=== PATIENT | female | born 1980 | race Caucasian/White ===

== ENCOUNTER 2020-01-29 10:58 | Emergency (ER) | payer OTHER ==
[2020-01-29] MEDS ORDERED: Sodium Chloride 0.9% 1000 ML 1,000 ML IV STA (11:12)
[2020-01-29] MEDS ORDERED: Sodium Chloride 0.9% 1000 ML 1,000 ML ONE (11:15)
[2020-01-29 11:49] LABS: BASOPHIL % 0.2 % (0.0-0.4); Basophil (Absolute #) 0.03 (0-0.4); Eosinophil (Absolute #) 0.17 (0-0.5); Hematocrit 41.4 % (35-47); Hemoglobin 13.1 gm/dl (12.0-16.0); Lymphocytes % 20.8 % (24.0-44.0); Mean Corpuscular Hgb Concent. 31.6 g/dl (32-36); Mean Platelet Volume 10.9 fl (7.5-11.0); Monocyte (Absolute #) 1.05 (0.0-1.3); Monocytes % 5.9 % (0.0-12.0); Neutrophil % 72.1 % (36.0-66.0); Platelet Count 452 K/mm3 (150-450); Red Blood Count 4.36 M/mm3 (4.1-5.4); Red Cell Distribution Width 15.3 % (11.5-14.0); White Blood Count 17.8 K/mm3 (4.0-10.5)
[2020-01-29] MEDS ORDERED: MORPHINE SULFATE 4 MG INJ IV ONE (11:55)
[2020-01-29] MEDS ORDERED: Zofran 4 MG/2 ML VIAL IV ONE (11:55)
[2020-01-29] MEDS ORDERED: TORAdol 30 mg Injection ONE (11:55)
[2020-01-29 12:19] VITALS: BP 167/93
[2020-01-29 12:26] LABS: ALKALINE PHOSPHATASE 131 U/L (38-126); ANION GAP 11.3 MEQ/L (5-15); BLOOD UREA NITROGEN 13 mg/dL (7-17); CHLORIDE 108 mmol/L (98-107); Calcium 9.2 mg/dL (8.4-10.2); Carbon Dioxide 24 mmol/L (22-30); Creatinine 1 0.93 mg/dL (0.52-1.04); EST GLOMERULAR FILTRATION RATE > 60.0 ML/MIN; Glucose 119 mg/dL (74-106); LIPASE 50 U/L (23-300); Potassium 4.4 mmol/L (3.5-5.1); SGOT/AST 24 U/L (14-36); SGPT/ALT 31 U/L (0-35); SODIUM 138 mmol/L (137-145); Total Protein 7.3 g/dL (6.3-8.2)
[2020-01-29 12:29] LABS: Appearance SLIGHTLY CLOUDY (CLEAR); Bacteria MODERATE /HPF (NEGATIVE); Bilirubin NEGATIVE (NEGATIVE); Blood NEGATIVE Ery/ul (0-5); Epithelial Cells RARE /HPF (FEW); Glucose NEGATIVE (NEGATIVE); Ketones NEGATIVE (NEGATIVE); Leukocyte Esterase SMALL (NEGATIVE); Mucus SLIGHT /HPF (NEGATIVE); Nitrite NEGATIVE (NEGATIVE); Protein,Urine Dip NEGATIVE (Negative); RBC 0-2 /HPF (0-2); Specific Gravity 1.006 (1.005-1.025); Urobilinogen NEGATIVE mg/dL (0-1)
[2020-01-29] MEDS ORDERED: TORAdol 30 mg Injection IV ONE (12:54)
--- NOTE | 2020-01-29 13:18 | XRAY ---
Indication: Left lower quadrant pain. Multiple contiguous axial images obtained through the abdomen and pelvis using 80 cc Isovue 370 contrast only. Comparison: None Lung bases demonstrates posterior right lower lobe cluster of noncalcified nodules, largest 9 mm considered indeterminate at this time. No infiltrate or effusion. Heart is not enlarged. Noncontrasted stomach and bowel loops appear nonobstructed. Normal appendix. No free fluid/air. Fundus of uterus demonstrates a 2 cm ovoid hypodense lesion, possible fibroid. Mild fatty hepatomegaly measuring 23 cm. Remaining liver, gallbladder, pancreas, spleen, adrenal glands, kidneys, ureters, bladder, uterus, and aorta appear unremarkable. No pathologic retroperitoneal lymphadenopathy. Osseous structures intact. No ventral or inguinal hernias. Impression: 1. Right lower lobe cluster of indeterminant noncalcified micronodules. Outside comparison studies recommended if available. If not, CT chest recommended to establish baseline with follow-up per Fleischner guidelines. 2. 2 cm uterine hypodense lesion, possible fibroid. Pelvic sonogram may yield further information if clinically warranted. 3. Fatty hepatomegaly.
[2020-01-29 14:08] VITALS: PULSE 95; O2SAT 97
--- NOTE | 2020-01-29 14:17 | XRAY ---
Indication: Left lower quadrant pain. Two-dimensional transvaginal pelvic sonogram performed. Comparison: September 03, 2014. Sonogram limited due to patient body habitus. Fundus poorly visualized. Uterus remains anteverted measuring 7.6 x 3.8 cm in the longitudinal plane. Lower uterine segment again demonstrates a few tiny nabothian cysts, largest 3 mm. Right ovary measures 1.8 x 2.0 x 2.3 cm and the left measures 2.8 x 2.8 x 1.7 cm. Normal follicular cysts and perfusion bilaterally. No suspicious adnexal mass or free fluid. Impression: Negative limited transvaginal pelvic sonogram. CT fundal fibroid not seen.
--- NOTE | 2020-01-29 14:51 | ERPHSYRPT ---
- History of Present Illness Time Seen by Provider: 01/29/20 11:18 Historian: patient Exam Limitations: no limitations Patient Subjective Stated Complaint: Pain in LLQ Triage Nursing Assessment: Pt drove self to the ER, hypertensive, pain with palp atation to the LLQ, states that it feels like a "spasm of my ovary", pulses normal, rates pain at this time as 5/10, skin flushed/w/d, 2 small BM's this AM, denies N&V Physician History: 39 years old morbidly obese female presented in the ER with chief complaint of left lower quadrant pain intermittently since yesterday without any significant aggravating or relieving factors, moderate intensity, not associated with vomiting or diarrhea. Denies any vaginal bleeding or discharge. No fever or chills reported. Timing/Duration: yesterday, intermittent, gradual onset, worse Activities at Onset: rest Quality: sharpness Abdominal Pain Onset Location: LLQ Pain Radiation: no radiation Severity of Pain-Max: moderate Severity of Pain-Current: moderate Modifying Factors: Improves With: nothing Associated Symptoms: denies symptoms Previous symptoms: no prior history Allergies/Adverse Reactions: prochlorperazine [From Compazine] Adverse Reaction (Verified 01/29/20 11:11) muscle spasms Home Medications: Levonorgestrel-Ethin Estradiol [Orsythia-28 Tablet] 1 each PO HS 11/08/15 [History] Hx Tetanus, Diphtheria Vaccination/Date Given: Yes (up to date) Hx Influenza Vaccination/Date Given: No Hx Pneumococcal Vaccination/Date Given: No Travel Risk - International Travel Have you traveled outside of the country in past 3 weeks: No - Coronavirus Screening Are you exhibiting any of the following symptoms?: No Close contact with a COVID-19 positive Pt in past 14-21 Days: No - Review of Systems Constitutional: No Symptoms Eyes: No Symptoms Ears, Nose, & Throat: No Symptoms Respiratory: No Symptoms Cardiac: No Symptoms Abdominal/Gastrointestinal: Abdominal Pain Genitourinary Symptoms: No Symptoms Musculoskeletal: No Symptoms Skin: No Symptoms Neurological: No Symptoms Psychological: No Symptoms Endocrine: No Symptoms Hematologic/Lymphatic: No Symptoms Immunological/Allergic: No Symptoms - Past Medical History Pertinent Past Medical History: Yes Neurological History: Migraines ENT History: No Pertinent History Cardiac History: No Pertinent History Respiratory History: No Pertinent History Endocrine Medical History: No Pertinent History Musculoskeletal History: Other GI Medical History: No Pertinent History History: No Pertinent History Psycho-Social History: No Pertinent History Female Reproductive Disorders: No Pertinent History Other Medical History: rarely has a migraine maybe once a year. Had a broken arm as a child - Past Surgical History Past Surgical History: Yes Neuro Surgical History: No Pertinent History Cardiac: No Pertinent History Respiratory: No Pertinent History Gastrointestinal: Hernia Repair Genitourinary: No Pertinent History Musculoskeletal: No Pertinent History Female Surgical History: No Pertinent History Other Surgical History: had hernia repair as a child and had a broken arm as a child had a sling no surgery to broken left upper arm - Social History Smoking Status: Former smoker Exposure to second hand smoke: No Drug Use: none Patient Lives Alone: Yes - Female History Hx Last Menstrual Period: 01/16/2020 Hx Now: No - Nursing Vital Signs Nursing Vital Signs: Initial Vital Signs Temperature 98.0 F 01/29/20 10:59 Pulse Rate 101 H 01/29/20 10:59 Blood Pressure 185/106 01/29/20 10:59 O2 Sat by Pulse Oximetry 99 01/29/20 10:59 Pain Scale Pain Intensity 4 - Physical Exam General Appearance: no apparent distress Eye Exam: PERRL/EOMI Ears, Nose, Throat Exam: normal ENT inspection, TMs normal Neck Exam: normal inspection, non-tender, supple, full range of motion Respiratory Exam: normal breath sounds, lungs clear Cardiovascular Exam: regular rate/rhythm, normal heart sounds Gastrointestinal/Abdomen Exam: soft, normal bowel sounds, tenderness (Left lower quadrant) Pelvic Exam: not done Back Exam: normal inspection, normal range of motion Extremity Exam: normal inspection, normal range of motion Neurologic Exam: alert, oriented x 3, cooperative Skin Exam: normal color SpO2 Interpretation: normal SpO2: 97 O2 Delivery: Room Air Ordered Tests: Active Orders 24 hr Category Date Time Status IV Insertion STAT Care 01/29/20 11:17 Completed ABDOMEN AND PELVIS W CONTRAST [CT] Stat Exams 01/29/20 11:17 Completed PELVIS TRANS VAGINAL [US] Stat Exams 01/29/20 13:21 Completed CBC W DIFF Stat Lab 01/29/20 11:25 Completed CMP Stat Lab 01/29/20 11:25 Completed CULTURE,URINE Stat Lab 01/29/20 12:12 Received HCG,QUALITATIVE URINE Stat Lab 01/29/20 12:12 Completed LIPASE Stat Lab 01/29/20 11:25 Completed UA W/RFX UR CULTURE Stat Lab 01/29/20 12:12 Completed Medication Summary Discontinued Medications Generic Name Dose Route Start Last Admin Trade Name Ru PRN Reason Stop Dose Admin Sodium Chloride 1,000 mls @ 999 mls/hr 01/29/20 11:12 01/29/20 12:50 Sodium Chloride 0.9% 1000 Ml IV 01/29/20 12:12 Infused .Q1H1M STA Infusion Sodium Chloride Confirm 01/29/20 11:15 Sodium Chloride 0.9% 1000 Ml Administered 01/29/20 11:16 Dose 1,000 mls @ ud .ROUTE .STK-MED ONE Ketorolac Tromethamine Confirm 01/29/20 11:55 Toradol 30 Mg Injection Administered 01/29/20 11:56 Dose 30 mg .ROUTE .STK-MED ONE Ketorolac Tromethamine 30 mg 01/29/20 12:54 01/29/20 12:55 Toradol 30 Mg Injection IV 01/29/20 12:55 30 mg STAT ONE Administration Morphine Sulfate 4 mg 01/29/20 11:55 01/29/20 12:55 Morphine Sulfate 4 Mg Inj IV 01/29/20 11:56 Not Given STAT ONE Ondansetron HCl 4 mg 01/29/20 11:55 01/29/20 14:42 Zofran 4 Mg/2 Ml Vial IV 01/29/20 11:56 Not Given STAT ONE Lab/Rad Data: Laboratory Result Diagrams 01/29/20 11:25 01/29/20 11:25 Laboratory Results 01/29/20 01/29/20 01/29/20 Range/Units 12:12 12:12 11:25 WBC (4.0-10.5) K/mm3 RBC (4.1-5.4) M/mm3 Hgb (12.0-16.0) gm/dl Hct (35-47) % MCV (78-100) fl MCH (26-32) pg MCHC (32-36) g/dl RDW (11.5-14.0) % Plt Count (150-450) K/mm3 MPV (7.5-11.0) fl Gran % (36.0-66.0) % Eos # (Auto) (0-0.5) Absolute Lymphs (auto) (1.0-4.6) Absolute Monos (auto) (0.0-1.3) Lymphocytes % (24.0-44.0) % Monocytes % (0.0-12.0) % Eosinophils % (0.00-5.0) % Basophils % (0.0-0.4) % Absolute Granulocytes (1.4-6.9) Basophils # (0-0.4) Sodium 138 (137-145) mmol/L Potassium 4.4 (3.5-5.1) mmol/L Chloride 108 H (98-107) mmol/L Carbon Dioxide 24 (22-30) mmol/L Anion Gap 11.3 (5-15) MEQ/L BUN 13 (7-17) mg/dL Creatinine 0.93 (0.52-1.04) mg/dL Estimated GFR > 60.0 ML/MIN Glucose 119 H (74-106) mg/dL Calcium 9.2 (8.4-10.2) mg/dL Total Bilirubin 0.30 (0.2-1.3) mg/dL AST 24 (14-36) U/L ALT 31 (0-35) U/L Alkaline Phosphatase 131 H (38-126) U/L Serum Total Protein 7.3 (6.3-8.2) g/dL Albumin 4.0 (3.5-5.0) g/dL Lipase 50 (23-300) U/L Urine Color YELLOW (YELLOW) Urine Appearance SLIGHTLY CLOUDY (CLEAR) Urine pH 5.0 (5-6) Ur Specific [place] 1.006 (1.005-1.025) Urine Protein NEGATIVE (Negative) Urine Ketones NEGATIVE (NEGATIVE) Urine Blood NEGATIVE (0-5) Terell/ul Urine Nitrite NEGATIVE (NEGATIVE) Urine Bilirubin NEGATIVE (NEGATIVE) Urine Urobilinogen NEGATIVE (0-1) mg/dL Ur Leukocyte Esterase SMALL (NEGATIVE) Urine WBC (Auto) 6-10 (0-5) /HPF Urine RBC (Auto) 0-2 (0-2) /HPF U Epithel Cells (Auto) RARE (FEW) /HPF Urine Bacteria (Auto) MODERATE (NEGATIVE) /HPF Urine Mucus (Auto) SLIGHT (NEGATIVE) /HPF Urine Culture Reflexed YES (NO) Urine Glucose NEGATIVE (NEGATIVE) mg/dL Urine HCG, Qual NEGATIVE (Negative) 12/02/20 Range/Units 11:25 WBC 17.8 H (4.0-10.5) K/mm3 RBC 4.36 (4.1-5.4) M/mm3 Hgb 13.1 (12.0-16.0) gm/dl Hct 41.4 (35-47) % MCV 95.0 (78-100) fl MCH 30.0 (26-32) pg MCHC 31.6 L (32-36) g/dl RDW 15.3 H (11.5-14.0) % Plt Count 452 H (150-450) K/mm3 MPV 10.9 (7.5-11.0) fl Gran % 72.1 H (36.0-66.0) % Eos # (Auto) 0.17 (0-0.5) Absolute Lymphs (auto) 3.70 (1.0-4.6) Absolute Monos (auto) 1.05 (0.0-1.3) Lymphocytes % 20.8 L (24.0-44.0) % Monocytes % 5.9 (0.0-12.0) % Eosinophils % 1.0 (0.00-5.0) % Basophils % 0.2 (0.0-0.4) % Absolute Granulocytes 12.80 H (1.4-6.9) Basophils # 0.03 (0-0.4) Sodium (137-145) mmol/L Potassium (3.5-5.1) mmol/L Chloride (98-107) mmol/L Carbon Dioxide (22-30) mmol/L Anion Gap (5-15) MEQ/L BUN (7-17) mg/dL Creatinine (0.52-1.04) mg/dL Estimated GFR ML/MIN Glucose (74-106) mg/dL Calcium (8.4-10.2) mg/dL Total Bilirubin (0.2-1.3) mg/dL AST (14-36) U/L ALT (0-35) U/L Alkaline Phosphatase (38-126) U/L Serum Total Protein (6.3-8.2) g/dL Albumin (3.5-5.0) g/dL Lipase (23-300) U/L Urine Color (YELLOW) Urine Appearance (CLEAR) Urine pH (5-6) Ur Specific [place] (1.005-1.025) Urine Protein (Negative) Urine Ketones (NEGATIVE) Urine Blood (0-5) Terell/ul Urine Nitrite (NEGATIVE) Urine Bilirubin (NEGATIVE) Urine Urobilinogen (0-1) mg/dL Ur Leukocyte Esterase (NEGATIVE) Urine WBC (Auto) (0-5) /HPF Urine RBC (Auto) (0-2) /HPF U Epithel Cells (Auto) (FEW) /HPF Urine Bacteria (Auto) (NEGATIVE) /HPF Urine Mucus (Auto) (NEGATIVE) /HPF Urine Culture Reflexed (NO) Urine Glucose (NEGATIVE) mg/dL Urine HCG, Qual (Negative) - Progress Progress: improved, pain not gone completely Progress Note: 01/29/20 39 years old is evaluated for left lower quadrant pain. She is given IV fluid and pain medications, on reevaluation her pain is much better but not completely relieved. She has normal white count, grossly unremarkable chemistries. I have obtained CT abdomen pelvis which is negative for any acute finding in the abdomen. It did show some nodules in the lung but no comparison study available. She is advised to follow-up with her primary care for CT chest as a baseline to further define it and monitor it later. CT showed some fibroid and I have obtained ultrasound which is negative with good flow in both ovaries. I do not know the exact cause of her pain but have ruled out all the major emergencies. She is given pain medications to take as needed. Discussed signs symptoms of worsening needing return to ER which she seems understanding. Stable for discharge. Counseled pt/family regarding: lab results, diagnosis, need for follow-up, rad results - Departure Departure Disposition: Home Clinical Impression: LLQ abdominal pain, Lung nodule Condition: Stable Critical Care Time: No Referrals: ELADIO YORK [Primary Care Provider] - Follow Up with PCP/3 days Instructions: Acute Abdomen (Belly Pain), Adult (DC) Additional Instructions: Take pain medications as needed. Follow-up with your primary care physician for reevaluation. Also you need CT scan of your chest to further define a small nodule in the lungs. Return to ER for worsening paiN or if develop vomiting/fever chills etc. Prescriptions: Hydrocodone/APAP 5-325 Tab^^^ [[place] 5-325 Tablet^^^] 1 tab PO Q6HPRN PRN #10 tablet MDD 6 PRN Reason: Pain
== END 2020-01-29 15:02 | disposition home or self-care (01) ==
LOC: ED 10:58
DX: R10.32 Left lower quadrant pain (principal); R91.1 Solitary pulmonary nodule
CPT/HCPCS: 36000; 36415; 74177; 76830; 80053; 81001; 83690; 84703; 85025; 87086; 96360; 96374; 99284; J1885

== ENCOUNTER 2021-01-30 05:11 | Inpatient (IN) | payer OTHER ==
--- NOTE | 2021-01-30 06:01 | ERPHSYRPT ---
- History of Present Illness Source: patient Exam Limitations: no limitations Patient Subjective Stated Complaint: pt states she was diagnosed with covid on monday and has been increasingly short of breath for the lst 24 hours. cx/o frequent dry cough and anxiety. Denies any pain. Triage Nursing Assessment: Patient ambulated back to ED with slow, steady gait. She is alert and oriented answering questions appropriately. Patient in bed with HOB all the way up in high fowlers position due to SOB. 02 sats 83% on room air upon arrival to ED. 02 at 5L per N/C applied and 02 saturation increased to 90%. No cough noted during assessment. Rhonchi noted in right upper lobe. Right lower lobe diminished. Physician History: 40 yo wf w +CV19 test 8 days ago w dyspnea/cough/resolved MACEDO/fever wo N/V/D/dysuria/hematuria/coryza/chest pain. Pt has a h/o obesity/DM/recently diagnosed thyroid ca. She does not smoke. Room air sats 83% on RA. Timing/Duration: other (8days) Cough Quality/Degree: dry cough Possible Cause: no prior episodes Modifying Factors: Improves With: coughing Associated Symptoms: fever, chills, cough, shortness of breath Allergies/Adverse Reactions: prochlorperazine [From Compazine] Adverse Reaction (Verified 01/30/21 08:41) muscle spasms Home Medications: Metformin HCl 500 mg PO BID 01/30/21 [History] Hx Tetanus, Diphtheria Vaccination/Date Given: Yes Hx Influenza Vaccination/Date Given: No Hx Pneumococcal Vaccination/Date Given: No Immunizations Up to Date: Yes Travel Risk - International Travel Have you traveled outside of the country in past 3 weeks: No - Coronavirus Screening Are you exhibiting any of the following symptoms?: Yes Symptoms: Fever, Shortness of Breath, Headaches/Body Aches/Fatigue Close contact with a COVID-19 positive Pt in past 14-21 Days: No - Vaccine Status Have you recieved a Covid-19 vaccination: No - Review of Systems Constitutional: No Symptoms, Fever, Chills Eyes: No Symptoms Respiratory: Cough, Dyspnea, Dyspnea on Exertion (AMOS) Cardiac: No Symptoms Abdominal/Gastrointestinal: No Symptoms Genitourinary Symptoms: No Symptoms Musculoskeletal: No Symptoms Skin: No Symptoms Neurological: No Symptoms Psychological: No Symptoms Endocrine: No Symptoms Hematologic/Lymphatic: No Symptoms Immunological/Allergic: No Symptoms - Past Medical History Pertinent Past Medical History: Yes Neurological History: Migraines ENT History: No Pertinent History Cardiac History: No Pertinent History Respiratory History: No Pertinent History Endocrine Medical History: Diabetes Type II, Thyroid Cancer Musculoskeletal History: Other GI Medical History: No Pertinent History History: No Pertinent History Psycho-Social History: No Pertinent History Female Reproductive Disorders: No Pertinent History Other Medical History: Had a broken arm as a child - Past Surgical History Past Surgical History: Yes Neuro Surgical History: No Pertinent History Cardiac: No Pertinent History Respiratory: No Pertinent History Gastrointestinal: Hernia Repair Genitourinary: No Pertinent History Musculoskeletal: No Pertinent History Female Surgical History: No Pertinent History Other Surgical History: had hernia repair as a child and had a broken arm as a child had a sling no surgery to broken left upper arm - Social History Smoking Status: Former smoker Exposure to second hand smoke: No Drug Use: none Patient Lives Alone: Yes Significant Family History: no pertinent family hx - Female History Hx Last Menstrual Period: Last Month Hx Now: No - Nursing Vital Signs Nursing Vital Signs: Initial Vital Signs Temperature 100.5 F 01/30/21 05:19 Pulse Rate 100 H 01/30/21 05:19 Respiratory Rate 24 01/30/21 05:19 Blood Pressure 162/86 01/30/21 05:19 O2 Sat by Pulse Oximetry 90 L 01/30/21 05:19 Pain Scale Pain Intensity 0 Hypertensive/Febrile/tachy/low sats - Physical Exam General Appearance: mild distress Eye Exam: PERRL/EOMI, eyes nml inspection Ears, Nose, Throat Exam: normal ENT inspection, TMs normal, pharynx normal, moist mucous membranes Neck Exam: normal inspection, non-tender, supple, full range of motion, No meningismus, No mass, No Brudzinski, No Kernig's Respiratory Exam: lungs clear, respiratory distress, airway intact Cardiovascular Exam: tachycardia, No murmur Gastrointestinal/Abdomen Exam: soft, normal bowel sounds Back Exam: normal inspection, normal range of motion Extremity Exam: normal inspection, normal range of motion Neurologic Exam: alert, oriented x 3, cooperative, damage prevention coordinator II-XII nml as tested, normal mood/affect Skin Exam: normal color Lymphatic Exam: No adenopathy SpO2 Interpretation: hypoxic SpO2: 90 O2 Delivery: Nasal Cannula (5L) - Course EKG Interpreted by Me: RATE (Sinus tach/Rate 103/Low voltage/Borderline LAFB) Ordered Tests: Medication Summary Generic Name Dose Route Start Last Admin Trade Name Ru PRN Reason Stop Dose Admin Acetaminophen 650 mg 01/30/21 07:04 02/01/21 14:17 Acetaminophen 325 Mg Tablet PO 03/01/21 07:03 650 mg Q4H PRN PRN Administration PAIN AND/OR FEVER Azithromycin 250 mg 02/08/21 10:00 Azithromycin 250 Mg Tablet PO 03/10/21 09:59 DAILY SIVAN Baricitinib 4 mg 01/30/21 10:00 02/07/21 09:06 Baricitinib 2 Mg Tablet PO 02/12/21 10:01 4 mg DAILY SIVAN Administration Chlorphenir/Hydrocodone Polistirex 5 ml 01/31/21 10:24 02/07/21 20:16 Hydrocodone/Chlorphen P-Stirex 1 Ml Marlin.Er.12h PO 03/02/21 10:22 5 ml Q8HPRN PRN Administration COUGH Dexamethasone Sodium Phosphate 12 mg 02/02/21 10:00 02/07/21 09:02 10 mg/ Dexamethasone Sodium IV 03/04/21 09:59 12 mg Phosphate 2 mg DAILY SIVAN Administration Enoxaparin Sodium 80 mg 01/31/21 10:00 02/07/21 09:05 Enoxaparin Sodium 80 Mg/0.8 Ml Syringe SQ 03/02/21 09:59 80 mg DAILY SIVAN Administration Remdesivir 100 mg/ Sodium 100 mls @ 100 mls/hr 02/04/21 10:00 02/07/21 09:06 Chloride IV 02/08/21 10:59 100 mls/hr Q24H SIVAN Administration Ceftriaxone Sodium/Dextrose 1 g in 50 mls @ 100 mls/hr 02/07/21 14:00 02/07/21 14:04 Rocephin 1 Gm-D5w 50 Ml Bag IV 02/10/21 13:59 100 mls/hr DAILY SIVAN Administration Insulin Human Lispro 0 unit 01/30/21 07:04 02/07/21 16:47 Insulin Lispro 1 Unit SQ 03/01/21 07:03 2 unit UD PRN Administration HYPERGLYCEMIA Lorazepam 1 mg 01/30/21 09:40 02/03/21 02:16 Lorazepam 2 Mg/1 Ml 2 Mg Vial IV 03/01/21 09:39 1 mg Q4H PRN PRN Administration ANXIETY/AGITATION Metformin HCl 500 mg 01/30/21 09:00 02/07/21 16:48 Metformin Hcl 500 Mg Tablet PO 03/01/21 08:59 500 mg BIDWM SIVAN Administration Ondansetron HCl 4 mg 01/30/21 07:04 Ondansetron Hcl 4 Mg/2 Ml Vial IV 03/01/21 07:03 Q6H PRN PRN NAUSEA/VOMITING Pantoprazole Sodium 40 mg 01/30/21 10:00 02/07/21 09:06 Pantoprazole 40 Mg Vial IV 03/01/21 09:59 40 mg Q24H10 SIVAN Administration Discontinued Medications Generic Name Dose Route Start Last Admin Trade Name Freq PRN Reason Stop Dose Admin Azithromycin 500 mg 02/07/21 14:00 02/07/21 14:04 Azithromycin 250 Mg Tablet PO 02/07/21 14:01 500 mg ONCE ONE Administration Chlorphenir/Hydrocodone Polistirex 5 ml 01/30/21 09:41 01/30/21 23:04 Hydrocodone/Chlorphen P-Stirex 1 Ml Marlin.Er.12h PO 03/01/21 09:40 5 ml [id number] PRN Administration COUGH Dexamethasone Sodium Phosphate 10 mg 01/30/21 06:51 01/30/21 06:53 Dexamethasone Sod Phosphate 10 Mg/Ml IV 01/30/21 06:52 10 mg STAT ONE Administration Dexamethasone Sodium Phosphate Confirm 01/30/21 06:51 Dexamethasone Sod Phosphate 10 Mg/Ml Administered 01/30/21 06:52 Dose 10 mg .ROUTE .STK-MED ONE Dexamethasone Sodium Phosphate 6 mg 01/31/21 10:00 Dexamethasone Sod Phosphate 10 Mg/Ml IV 03/02/21 09:59 DAILY SIVAN Dexamethasone Sodium Phosphate 8 mg 01/31/21 10:00 02/02/21 11:16 Dexamethasone Sod Phosphate 10 Mg/Ml IV 03/02/21 09:59 Not Given DAILY SIVAN Enoxaparin Sodium 40 mg 01/30/21 10:00 Enoxaparin Sodium 40 Mg/0.4 Ml Syringe SQ 03/01/21 09:59 DAILY SIVAN Enoxaparin Sodium 80 mg 01/30/21 10:00 01/30/21 10:20 Enoxaparin Sodium 40 Mg/0.4 Ml Syringe SQ 03/01/21 09:59 80 mg DAILY SIVAN Administration Famotidine 20 mg 01/30/21 10:00 01/30/21 10:22 Famotidine 20 Mg/1 Vial IV 03/01/21 09:59 20 mg Q12HT SIVAN Administration Furosemide 20 mg 01/30/21 15:32 01/30/21 15:35 Furosemide 20 Mg/Vial IV 01/30/21 15:33 20 mg DAILY ONE Administration Furosemide 20 mg 02/04/21 12:00 02/04/21 12:15 Furosemide 20 Mg/Vial IV 02/04/21 12:01 20 mg 1200 SIVAN Administration Remdesivir 100 mg/ Sodium 100 mls @ 100 mls/hr 01/31/21 10:00 02/03/21 09:37 Chloride IV 02/03/21 10:59 100 mls/hr Q24H SIVAN Administration Remdesivir 200 mg/ Sodium 250 mls @ 125 mls/hr 01/30/21 07:09 01/30/21 09:16 Chloride IV 01/30/21 09:08 125 mls/hr ONCE ONE Administration Sodium Chloride 1,000 mls @ 25 mls/hr 01/30/21 07:15 02/03/21 09:39 Sodium Chloride 0.9% 1000 Ml IV 03/01/21 07:14 50 mls/hr .Q24H SIVAN Administration Lab/Rad Data: Laboratory Result Diagrams 01/30/21 05:59 01/30/21 05:59 Laboratory Results 01/30/21 01/30/21 01/30/21 Range/Units 07:01 06:09 05:59 WBC (4.0-10.5) K/mm3 RBC (4.1-5.4) M/mm3 Hgb (12.0-16.0) gm/dl Hct (35-47) % MCV (78-100) fl MCH (26-32) pg MCHC (32-36) g/dl RDW (11.5-14.0) % Plt Count (150-450) K/mm3 MPV (7.5-11.0) fl Gran % (36.0-66.0) % Eos # (Auto) (0-0.5) Absolute Lymphs (auto) (1.0-4.6) Absolute Monos (auto) (0.0-1.3) Lymphocytes % (24.0-44.0) % Monocytes % (0.0-12.0) % Eosinophils % (0.00-5.0) % Basophils % (0.0-0.4) % Absolute Granulocytes (1.4-6.9) Basophils # (0-0.4) PT (9.4-12.5) SECONDS INR (0.8-3.0) APTT (25.1-36.5) SECONDS D-Dimer (215-500) ng/mL Sodium (137-145) mmol/L Potassium (3.5-5.1) mmol/L Chloride (98-107) mmol/L Carbon Dioxide (22-30) mmol/L Anion Gap (5-15) MEQ/L BUN (7-17) mg/dL Creatinine (0.52-1.04) mg/dL Estimated GFR ML/MIN Glucose (74-106) mg/dL Lactic Acid (0.4-2.0) Calcium (8.4-10.2) mg/dL Total Bilirubin (0.2-1.3) mg/dL AST (14-36) U/L ALT (0-35) U/L Alkaline Phosphatase (38-126) U/L Troponin I < 0.012 (0.000-0.034) ng/mL Serum Total Protein (6.3-8.2) g/dL Albumin (3.5-5.0) g/dL Urine Color YELLOW (YELLOW) Urine Appearance SLIGHTLY CLOUDY (CLEAR) Urine pH 6.0 (5-6) Ur Specific Harper 1.011 (1.005-1.025) Urine Protein 30 (Negative) Urine Ketones NEGATIVE (NEGATIVE) Urine Blood SMALL (0-5) Terell/ul Urine Nitrite NEGATIVE (NEGATIVE) Urine Bilirubin NEGATIVE (NEGATIVE) Urine Urobilinogen NEGATIVE (0-1) mg/dL Ur Leukocyte Esterase TRACE (NEGATIVE) Urine WBC (Auto) 6-10 (0-5) /HPF Urine RBC (Auto) NONE (0-2) /HPF U Epithel Cells (Auto) RARE (FEW) /HPF Urine Bacteria (Auto) MODERATE (NEGATIVE) /HPF Urine Culture Reflexed NO (NO) Urine Glucose NEGATIVE (NEGATIVE) mg/dL Influenza Type A Ag NEGATIVE (NEGATIVE) Influenza Type B Ag NEGATIVE (NEGATIVE) RSV (PCR) NEGATIVE (Negative) SARS-CoV-2 (PCR) POSITIVE A (NEGATIVE) 01/30/21 01/30/21 01/30/21 Range/Units 05:59 05:59 05:59 WBC 8.7 (4.0-10.5) K/mm3 RBC 4.57 (4.1-5.4) M/mm3 Hgb 13.3 (12.0-16.0) gm/dl Hct 42.2 (35-47) % MCV 92.3 (78-100) fl MCH 29.1 (26-32) pg MCHC 31.5 L (32-36) g/dl RDW 15.3 H (11.5-14.0) % Plt Count 302 (150-450) K/mm3 MPV 10.2 (7.5-11.0) fl Gran % 82.3 H (36.0-66.0) % Eos # (Auto) 0 (0-0.5) Absolute Lymphs (auto) 1.03 (1.0-4.6) Absolute Monos (auto) 0.50 (0.0-1.3) Lymphocytes % 11.8 L (24.0-44.0) % Monocytes % 5.7 (0.0-12.0) % Eosinophils % 0.0 (0.00-5.0) % Basophils % 0.2 (0.0-0.4) % Absolute Granulocytes 7.17 H (1.4-6.9) Basophils # 0.02 (0-0.4) PT 13.0 H (9.4-12.5) SECONDS INR 1.10 (0.8-3.0) APTT 28.9 (25.1-36.5) SECONDS D-Dimer 661 H* (215-500) ng/mL Sodium 134 L (137-145) mmol/L Potassium 4.7 (3.5-5.1) mmol/L Chloride 98 (98-107) mmol/L Carbon Dioxide 26 (22-30) mmol/L Anion Gap 14.6 (5-15) MEQ/L BUN 10 (7-17) mg/dL Creatinine 0.72 (0.52-1.04) mg/dL Estimated GFR > 60.0 ML/MIN Glucose 144 H (74-106) mg/dL Lactic Acid (0.4-2.0) Calcium 8.7 (8.4-10.2) mg/dL Total Bilirubin 0.30 (0.2-1.3) mg/dL AST 118 H (14-36) U/L ALT 154 H (0-35) U/L Alkaline Phosphatase 153 H (38-126) U/L Troponin I (0.000-0.034) ng/mL Serum Total Protein 6.6 (6.3-8.2) g/dL Albumin 3.7 (3.5-5.0) g/dL Urine Color (YELLOW) Urine Appearance (CLEAR) Urine pH (5-6) Ur Specific Harper (1.005-1.025) Urine Protein (Negative) Urine Ketones (NEGATIVE) Urine Blood (0-5) Terell/ul Urine Nitrite (NEGATIVE) Urine Bilirubin (NEGATIVE) Urine Urobilinogen (0-1) mg/dL Ur Leukocyte Esterase (NEGATIVE) Urine WBC (Auto) (0-5) /HPF Urine RBC (Auto) (0-2) /HPF U Epithel Cells (Auto) (FEW) /HPF Urine Bacteria (Auto) (NEGATIVE) /HPF Urine Culture Reflexed (NO) Urine Glucose (NEGATIVE) mg/dL Influenza Type A Ag (NEGATIVE) Influenza Type B Ag (NEGATIVE) RSV (PCR) (Negative) SARS-CoV-2 (PCR) (NEGATIVE) 01/30/21 Range/Units 05:48 WBC (4.0-10.5) K/mm3 RBC (4.1-5.4) M/mm3 Hgb (12.0-16.0) gm/dl Hct (35-47) % MCV (78-100) fl MCH (26-32) pg MCHC (32-36) g/dl RDW (11.5-14.0) % Plt Count (150-450) K/mm3 MPV (7.5-11.0) fl Gran % (36.0-66.0) % Eos # (Auto) (0-0.5) Absolute Lymphs (auto) (1.0-4.6) Absolute Monos (auto) (0.0-1.3) Lymphocytes % (24.0-44.0) % Monocytes % (0.0-12.0) % Eosinophils % (0.00-5.0) % Basophils % (0.0-0.4) % Absolute Granulocytes (1.4-6.9) Basophils # (0-0.4) PT (9.4-12.5) SECONDS INR (0.8-3.0) APTT (25.1-36.5) SECONDS D-Dimer (215-500) ng/mL Sodium (137-145) mmol/L Potassium (3.5-5.1) mmol/L Chloride (98-107) mmol/L Carbon Dioxide (22-30) mmol/L Anion Gap (5-15) MEQ/L BUN (7-17) mg/dL Creatinine (0.52-1.04) mg/dL Estimated GFR ML/MIN Glucose (74-106) mg/dL Lactic Acid 1.1 (0.4-2.0) Calcium (8.4-10.2) mg/dL Total Bilirubin (0.2-1.3) mg/dL AST (14-36) U/L ALT (0-35) U/L Alkaline Phosphatase (38-126) U/L Troponin I (0.000-0.034) ng/mL Serum Total Protein (6.3-8.2) g/dL Albumin (3.5-5.0) g/dL Urine Color (YELLOW) Urine Appearance (CLEAR) Urine pH (5-6) Ur Specific Harper (1.005-1.025) Urine Protein (Negative) Urine Ketones (NEGATIVE) Urine Blood (0-5) Terell/ul Urine Nitrite (NEGATIVE) Urine Bilirubin (NEGATIVE) Urine Urobilinogen (0-1) mg/dL Ur Leukocyte Esterase (NEGATIVE) Urine WBC (Auto) (0-5) /HPF Urine RBC (Auto) (0-2) /HPF U Epithel Cells (Auto) (FEW) /HPF Urine Bacteria (Auto) (NEGATIVE) /HPF Urine Culture Reflexed (NO) Urine Glucose (NEGATIVE) mg/dL Influenza Type A Ag (NEGATIVE) Influenza Type B Ag (NEGATIVE) RSV (PCR) (Negative) SARS-CoV-2 (PCR) (NEGATIVE) - Progress Progress: improved Progress Note: 01/30/21 06:52 Pt's sats mid 90's on 5L O2 NC 10mg IV Decadron 12/04/21 07:13 Unable to get ahold of Dr. Curran Admitting orders done Dr. Osman to talk to Dr. Curran Counseled pt/family regarding: lab results, diagnosis, rad results - Departure Departure Disposition: Observation Clinical Impression: COVID-19 Condition: Stable Critical Care Time: Yes Critical Care Time(excluding separately billable procedures): Critical 30-74 mins
[2021-01-30 06:04] LABS: Absolute Neutrophil Ct (ANC) 7.17 (1.4-6.9); BASOPHIL % 0.2 % (0.0-0.4); Basophil (Absolute #) 0.02 (0-0.4); Eosinophil (Absolute #) 0 (0-0.5); Hematocrit 42.2 % (35-47); Hemoglobin 13.3 gm/dl (12.0-16.0); Lymphocyte (Absolute #) 1.03 (1.0-4.6); Lymphocytes % 11.8 % (24.0-44.0); Mean Cell Volume 92.3 fl (78-100); Mean Corpuscular Hemoglobin 29.1 pg (26-32); Mean Corpuscular Hgb Concent. 31.5 g/dl (32-36); Mean Platelet Volume 10.2 fl (7.5-11.0); Monocytes % 5.7 % (0.0-12.0); Neutrophil % 82.3 % (36.0-66.0); Platelet Count 302 K/mm3 (150-450); Red Blood Count 4.57 M/mm3 (4.1-5.4); Red Cell Distribution Width 15.3 % (11.5-14.0); White Blood Count 8.7 K/mm3 (4.0-10.5)
[2021-01-30 06:08] LABS: INR 1.1 (0.8-3.0)
[2021-01-30 06:11] LABS: PTT 28.9 SECONDS (25.1-36.5)
[2021-01-30 06:29] LABS: ALBUMIN 3.7 g/dL (3.5-5.0); ALKALINE PHOSPHATASE 153 U/L (38-126); ANION GAP 14.6 MEQ/L (5-15); BLOOD UREA NITROGEN 10 mg/dL (7-17); CHLORIDE 98 mmol/L (98-107); Calcium 8.7 mg/dL (8.4-10.2); Carbon Dioxide 26 mmol/L (22-30); Creatinine 1 0.72 mg/dL (0.52-1.04); EST GLOMERULAR FILTRATION RATE > 60.0 ML/MIN; Glucose 144 mg/dL (74-106); Potassium 4.7 mmol/L (3.5-5.1); SGOT/AST 118 U/L (14-36); SGPT/ALT 154 U/L (0-35); SODIUM 134 mmol/L (137-145); Total Protein 6.6 g/dL (6.3-8.2)
[2021-01-30] MEDS ORDERED: DECADRON 10MG INJ. ONE (06:51)
[2021-01-30] MEDS ORDERED: DECADRON 10MG INJ. IV ONE (06:51)
[2021-01-30 06:56] LABS: INFLUENZA A NEGATIVE (NEGATIVE); INFLUENZA B NEGATIVE (NEGATIVE); RESPIRATORY SYNCTIAL VIRUS NEGATIVE (Negative)
[2021-01-30 06:57] LABS: SARS-CoV-2 Xpert Express POSITIVE (NEGATIVE)
[2021-01-30] MEDS ORDERED: Zofran 4 MG/2 ML VIAL IV PRN (07:04)
[2021-01-30] MEDS ORDERED: REMDESIVIR 200 MG in Sodium Chloride 0.9% 250 ML 250 ML IV ONE (07:09)
--- NOTE | 2021-01-30 08:18 | XRAY ---
Indication: Short of breath. Positive Covid 19. Comparison: None Portable chest demonstrates moderate diffuse bilateral consolidating/nonconsolidating patchy airspace disease without large effusion. Remaining heart and bony thorax unremarkable.
[2021-01-30 09:18] LABS: Appearance SLIGHTLY CLOUDY (CLEAR); Bacteria MODERATE /HPF (NEGATIVE); Bilirubin NEGATIVE (NEGATIVE); Blood SMALL Ery/ul (0-5); Epithelial Cells RARE /HPF (FEW); Glucose NEGATIVE (NEGATIVE); Ketones NEGATIVE (NEGATIVE); Leukocyte Esterase TRACE (NEGATIVE); Nitrite NEGATIVE (NEGATIVE); Protein,Urine Dip 30 (Negative); Specific Gravity 1.011 (1.005-1.025); Urobilinogen NEGATIVE mg/dL (0-1)
[2021-01-30] MEDS ORDERED: ENOXAPARIN SODIUM SQ SCH ×2 (10:00)
[2021-01-30] MEDS ORDERED: Pepcid 20 MG VIAL IV SCH (10:00)
[2021-01-30] MEDS: HYDROCODONE-CHLORPHEN ER SUSP PO PRN ×2 (10:20→23:04)
[2021-01-30] MEDS: OLUMIANT PO SCH (10:21)
[2021-01-30] MEDS: Sodium Chloride 0.9% 1000 ML 1,000 ML IV SCH (10:21)
[2021-01-30] MEDS: Glucophage 500 MG PO SCH ×2 (10:21→16:14)
[2021-01-30] MEDS: PROTONIX 40 MG IV IV SCH (10:22)
[2021-01-30] MEDS: Ativan 2 MG/1 ML VIAL IV PRN ×3 (10:24→23:30)
[2021-01-30] MEDS ORDERED: Lasix 20 MG/2 ML IV ONE (15:32)
[2021-01-30] MEDS: TYLENOL 325 MG PO PRN (16:15)
[2021-01-30 16:18] LABS: A-aADO2 448; ABG HEMOGLOBIN 14.5; ABG POTASSIUM 4.5 (3.5-5.1); ARTERIAL BLOOD GAS FIO2 80 %; ARTERIAL BLOOD GAS PCO2 44 mmHg (35-45); ARTERIAL BLOOD GAS PO2 67 mmHg (75-100); CARBOXYHEMOGLOBIN 1.4 % THgb (0.0-6.9); HCO3- 27.3 (22-28); HGB O2 SAT 92.6 g/dF (94-100)
[2021-01-30 16:19] LABS: ABG SITE LEFT BRACHIAL
[2021-01-31] MEDS: TYLENOL 325 MG PO PRN ×2 (03:59→09:56)
[2021-01-31 06:46] LABS: Hemoglobin 12.8 gm/dl (12.0-16.0); Mean Cell Volume 94.2 fl (78-100); Mean Corpuscular Hemoglobin 28.7 pg (26-32); Mean Corpuscular Hgb Concent. 30.5 g/dl (32-36); Platelet Count 347 K/mm3 (150-450); Red Blood Count 4.46 M/mm3 (4.1-5.4); Red Cell Distribution Width 15.8 % (11.5-14.0); White Blood Count 9.4 K/mm3 (4.0-10.5)
[2021-01-31 07:13] LABS: ALBUMIN 3.4 g/dL (3.5-5.0); ALKALINE PHOSPHATASE 138 U/L (38-126); ANION GAP 12.2 MEQ/L (5-15); BLOOD UREA NITROGEN 15 mg/dL (7-17); CHLORIDE 103 mmol/L (98-107); Calcium 8.7 mg/dL (8.4-10.2); Carbon Dioxide 27 mmol/L (22-30); Creatinine 1 0.72 mg/dL (0.52-1.04); EST GLOMERULAR FILTRATION RATE > 60.0 ML/MIN; Glucose 157 mg/dL (74-106); Potassium 4.9 mmol/L (3.5-5.1); SGOT/AST 91 U/L (14-36); SGPT/ALT 138 U/L (0-35); SODIUM 137 mmol/L (137-145); Total Protein 6.4 g/dL (6.3-8.2)
[2021-01-31] MEDS: Glucophage 500 MG PO SCH ×2 (08:04→16:29)
[2021-01-31 08:34] LABS: BAND 2 % (0.0-2.0); Eosinophil 1 % (0.00-3.0); Lymphocytes 12 % (24-44); Monocyte 3 % (0.0-12.0); Neutrophils 82 % (36.0-66.0); Total Cells Counted 100
[2021-01-31 08:35] LABS: Platelet Estimate NORMAL (NORMAL)
[2021-01-31] MEDS: PROTONIX 40 MG IV IV SCH (09:56)
[2021-01-31] MEDS: Sodium Chloride 0.9% 1000 ML 1,000 ML IV SCH (09:56)
[2021-01-31] MEDS: OLUMIANT PO SCH (09:56)
[2021-01-31] MEDS: DECADRON 10MG INJ. IV SCH (09:56)
[2021-01-31] MEDS: ENOXAPARIN SODIUM SQ SCH (09:57)
[2021-01-31] MEDS ORDERED: DECADRON 10MG INJ. IV SCH (10:00)
[2021-01-31] MEDS: HYDROCODONE-CHLORPHEN ER SUSP PO PRN ×2 (10:42→20:55)
[2021-01-31] MEDS: REMDESIVIR 100 MG in Sodium Chloride 0.9% 100 ML BAG 100 ML IV SCH (11:23)
[2021-01-31] MEDS: HUMALOG SQ PRN (16:29)
[2021-01-31] MEDS: Ativan 2 MG/1 ML VIAL IV PRN (18:08)
[2021-02-01] MEDS: Ativan 2 MG/1 ML VIAL IV PRN ×2 (03:10→19:50)
[2021-02-01] MEDS: TYLENOL 325 MG PO PRN ×2 (03:17→14:17)
[2021-02-01 05:43] LABS: A-aADO2 583; ABG HEMOGLOBIN 13.3; ABG POTASSIUM 4.3 (3.5-5.1); ARTERIAL BLD GAS O2 SATURATION 98.1 % (95-100); ARTERIAL BLOOD GAS BASE EXCESS 6.2 (-2.0-2.0); ARTERIAL BLOOD GAS FIO2 100 %; ARTERIAL BLOOD GAS PCO2 42 mmHg (35-45); ARTERIAL BLOOD GAS PO2 78 mmHg (75-100); ARTERIAL BLOOD GAS pH 7.47 (7.35-7.45); CARBOXYHEMOGLOBIN 3.6 % THgb (0.0-6.9); HCO3- 30.6 (22-28); HGB O2 SAT 93.5 g/dF (94-100); Methhemoglobin 1.2 % (1.4-1.5)
[2021-02-01 05:44] LABS: ABG SITE RIGHT BRACHIAL
[2021-02-01 06:02] LABS: ALBUMIN 3.2 g/dL (3.5-5.0); ALKALINE PHOSPHATASE 122 U/L (38-126); ANION GAP 8.8 MEQ/L (5-15); BLOOD UREA NITROGEN 18 mg/dL (7-17); CHLORIDE 103 mmol/L (98-107); Calcium 8.9 mg/dL (8.4-10.2); Carbon Dioxide 29 mmol/L (22-30); Creatinine 1 0.62 mg/dL (0.52-1.04); EST GLOMERULAR FILTRATION RATE > 60.0 ML/MIN; Glucose 160 mg/dL (74-106); Potassium 4.6 mmol/L (3.5-5.1); SGOT/AST 71 U/L (14-36); SGPT/ALT 122 U/L (0-35); SODIUM 136 mmol/L (137-145)
[2021-02-01 06:50] LABS: Hematocrit 40.8 % (35-47); Hemoglobin 12.3 gm/dl (12.0-16.0); Mean Cell Volume 95.6 fl (78-100); Mean Corpuscular Hemoglobin 28.8 pg (26-32); Mean Corpuscular Hgb Concent. 30.1 g/dl (32-36); Mean Platelet Volume 9.8 fl (7.5-11.0); Platelet Count 410 K/mm3 (150-450); Red Blood Count 4.27 M/mm3 (4.1-5.4); Red Cell Distribution Width 15.7 % (11.5-14.0); White Blood Count 14.1 K/mm3 (4.0-10.5)
[2021-02-01] MEDS: Sodium Chloride 0.9% 1000 ML 1,000 ML IV SCH (07:11)
[2021-02-01] MEDS: Glucophage 500 MG PO SCH ×2 (08:14→16:51)
[2021-02-01] MEDS: HYDROCODONE-CHLORPHEN ER SUSP PO PRN ×2 (08:14→19:49)
[2021-02-01 09:16] LABS: ANISOCYTOSIS 1+; BAND 1 % (0.0-2.0); Lymphocytes 17 % (24-44); Monocyte 2 % (0.0-12.0); Neutrophils 80 % (36.0-66.0); Platelet Estimate NORMAL (NORMAL); Total Cells Counted 100
[2021-02-01] MEDS: OLUMIANT PO SCH (09:32)
[2021-02-01] MEDS: DECADRON 10MG INJ. IV SCH (09:32)
[2021-02-01] MEDS: ENOXAPARIN SODIUM SQ SCH (09:33)
[2021-02-01] MEDS: PROTONIX 40 MG IV IV SCH (09:33)
[2021-02-01] MEDS: REMDESIVIR 100 MG in Sodium Chloride 0.9% 100 ML BAG 100 ML IV SCH (10:04)
--- NOTE | 2021-02-01 11:16 | HP ---
CHIEF COMPLAINT: Shortness of breath, cough, positive COVID test for about seven days. 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 She has not had her vaccines. She mostly has a dry cough and is increasing progressive short of breath. She tried to treat herself at home but got worse and came into the emergency room. O2 at 5 liters were required to get her O2 saturation up to 88%. Nonsmoker. TRAVEL RISK: None outside the [facility]. CORONAVIRUS SCREENING: Fever, shortness of breath, headache, body ache, fatigue. HOME MEDICATIONS: Metformin 500 b.i.d. for diabetes. She has lost weight about 20 pounds on that. She was just recently put on it six months ago. ALLERGIES: PHENERGAN. PAST MEDICAL HISTORY: Recent diagnosis of thyroid cancer not treated yet. Diabetes mellitus type II just diagnosed last year. Broken arm as a child. Periods irregular. PAST SURGICAL HISTORY: Ventral hernia repair as a young lady. REVIEW OF SYSTEMS: HEENT: Headache, fever. CHEST: Frequent dry cough. CVS: No exertional chest pain or palpitations. ABDOMEN: No nausea or vomiting. Taking fluids okay. EXTREMITIES: No specific complaints. NEUROLOGIC: The patient has migraines occasionally, not severe. ENDOCRINE: Thyroid cancer. Diabetes mellitus type II just diagnosed last year. Thyroid cancer just diagnosed awaiting biopsy and treatment with radiation. SOCIAL HISTORY: Former smoker. Works at the [employer], I guess, at [employer]. PHYSICAL EXAMINATION: The patient is alert, orientated, heavy woman who is pleasant and short of breath. VITAL SIGNS: Temperature 99.5F, pulse 100, respirations 24, blood pressure 162/86. O2 is 90% on 5 liters. HEENT: Pupils equal and reactive to light. No jaundice. NECK: Supple without adenopathy. CHEST: Clear. CVS: No murmurs or gallops. ABDOMEN: Soft. No masses or organomegaly. She is quite large. EXTREMITIES: No edema. LYMPHATIC SYSTEM: No lymph nodes can be felt in her neck or thyroid area. LAB DATA AND TESTS: IMPRESSION: The patient has COVID pneumonia, thyroid cancer and diabetes. Her blood sugar was 144. Calcium was okay at 8.7 and her enzymes were slightly elevated. PLAN: The patient will be treated with Remdesivir, Decadron. She will be anticoagulated with 80 mg of Lovenox secondary to large size, will give some Pepcid and give her antibodies. She is quite hypoxic. D-dimer was 661 not terribly high. I will review her chest x-ray done in the emergency room. PROGNOSIS: Fair.
--- NOTE | 2021-02-01 13:19 | PCM.NOTE ---
Date and Time: 02/01/21 1317 - Review of Systems Constitutional: No Fever, No Chills Eyes: No Symptoms Ears, Nose, & Throat: No Symptoms Respiratory: Cough, Orthopnea, Short Of Breath, Wheezing Cardiac: No Chest Pain, No Edema, No Syncope Abdominal/Gastrointestinal: No Abdominal Pain, No Nausea, No Vomiting, No Diarrhea Genitourinary Symptoms: No Dysuria Musculoskeletal: No Back Pain, No Neck Pain Skin: No Rash Neurological: No Dizziness, No Focal Weakness, No Sensory Changes Psychological: No Symptoms Endocrine: No Symptoms Hematologic/Lymphatic: No Symptoms Immunological/Allergic: No Symptoms Objective Exam General Appearance: no apparent distress, alert Neurologic Exam: alert, oriented x 3, cooperative, normal mood/affect, nml cerebellar function, sensation nml, No motor deficits Skin Exam: normal color, warm, dry Eye Exam: PERRL, EOMI, eyes nml inspection Ears, Nose, Throat Exam: normal ENT inspection, pharynx normal, moist mucous membranes Neck Exam: normal inspection, non-tender, supple, full range of motion Respiratory Exam: diminished breath sounds, crackles/rales, rhonchi, wheezing, No respiratory distress Cardiovascular Exam: regular rate/rhythm, normal heart sounds Gastrointestinal/Abdomen Exam: soft, No tenderness, No mass Extremity Exam: normal inspection, normal range of motion Back Exam: normal inspection, normal range of motion, No CVA tenderness, No vertebral tenderness Pelvic Exam: deferred Rectal Exam: deferred OBJECTIVE DATA Vital Signs: Vital Signs - 24 hr Temp Pulse Resp BP BP BP Pulse Ox 02/01/21 12:53 88 20 89 L 02/01/21 11:49 97.4 F 87 26 H 159/91 88 L 02/01/21 11:00 81 22 86 L 02/01/21 10:00 77 28 H 85 L 02/01/21 09:00 80 30 H 90 L 02/01/21 08:37 92 L 02/01/21 08:00 98.6 F 85 26 H 151/77 91 L 02/01/21 06:53 82 28 H 89 L 02/01/21 06:00 26 H 02/01/21 05:59 90 29 H 92 L 02/01/21 04:52 81 22 94 L 02/01/21 03:43 82 25 H 151/88 91 L 02/01/21 03:10 86 20 134/71 02/01/21 03:00 98.2 F 82 20 151/88 88 L 02/01/21 02:00 81 17 93 L 02/01/21 00:55 98.0 F 92 H 20 134/71 90 L 02/01/21 00:00 80 31 H 124/74 93 L 01/31/21 23:00 82 30 H 93 L 01/31/21 22:00 84 29 H 92 L 01/31/21 21:27 92 L 01/31/21 21:00 87 29 H 90 L 01/31/21 20:00 98.4 F 89 26 H 161/91 93 L 01/31/21 19:56 92 L 01/31/21 19:00 85 32 H 92 L 01/31/21 18:08 85 33 H 01/31/21 17:58 26 H 01/31/21 17:45 93 H 36 H 85 L 01/31/21 17:00 96.7 F 93 H 30 H 151/86 86 L 01/31/21 16:00 35 H 01/31/21 15:48 84 30 H 88 L 01/31/21 15:17 92 L 01/31/21 14:41 84 30 H 90 L 01/31/21 14:00 19 01/31/21 13:42 89 23 93 L Pain Assessment - Last Documented Pain Intensity 7 Pain Scale Used 0-10 Pain Scale Intake and Output: Intake & Output 01/30/21 01/31/21 02/01/21 02/02/21 11:59 11:59 11:59 11:59 Intake Total 1815 3255 Output Total 1275 1100 Balance 540 2155 Weight 159.9 kg 160.5 kg 162.9 kg Lab Results: Lab Results-Last 24 Hours 01/31/21 01/31/21 02/01/21 Range/Units 16:13 20:59 05:30 WBC (4.0-10.5) K/mm3 RBC (4.1-5.4) M/mm3 Hgb (12.0-16.0) gm/dl Hct (35-47) % MCV (78-100) fl MCH (26-32) pg MCHC (32-36) g/dl RDW (11.5-14.0) % Plt Count (150-450) K/mm3 MPV (7.5-11.0) fl Segmented Neutrophils (36.0-66.0) % Band Neutrophils (0.0-2.0) % Lymphocytes (Manual) (24-44) % Monocytes (Manual) (0.0-12.0) % Platelet Estimate (NORMAL) RBC Morphology Anisocytosis D-Dimer (215-500) ng/mL Puncture Site pCO2 (35-45) mmHg pO2 (75-100) mmHg Base Excess (-2.0-2.0) O2 Saturation (94-100) g/dF ABG pH (7.35-7.45) ABG HCO3 (22-28) ABG O2 Sat (Measured) (95-100) % Nadeem Test A-a Gradient a/A Ratio Hemoglobin Carboxyhemoglobin (0.0-6.9) % THgb Methemoglobin (1.4-1.5) % Temperature C POC O2 Flow Rate % Sodium 136 L (137-145) mmol/L Potassium 4.6 (3.5-5.1) mmol/L Chloride 103 (98-107) mmol/L Carbon Dioxide 29 (22-30) mmol/L Anion Gap 8.8 (5-15) MEQ/L BUN 18 H (7-17) mg/dL Creatinine 0.62 (0.52-1.04) mg/dL Estimated GFR > 60.0 ML/MIN Glucose 160 H (74-106) mg/dL POC Glucometer 207 H 173 H (74 to 106) mg/dL Calcium 8.9 (8.4-10.2) mg/dL Total Bilirubin 0.30 (0.2-1.3) mg/dL AST 71 H (14-36) U/L ALT 122 H (0-35) U/L Alkaline Phosphatase 122 (38-126) U/L Serum Total Protein 6.0 L (6.3-8.2) g/dL Albumin 3.2 L (3.5-5.0) g/dL 02/01/21 02/01/21 02/01/21 Range/Units 05:30 05:30 05:33 WBC 14.1 H (4.0-10.5) K/mm3 RBC 4.27 (4.1-5.4) M/mm3 Hgb 12.3 (12.0-16.0) gm/dl Hct 40.8 (35-47) % MCV 95.6 (78-100) fl MCH 28.8 (26-32) pg MCHC 30.1 L (32-36) g/dl RDW 15.7 H (11.5-14.0) % Plt Count 410 (150-450) K/mm3 MPV 9.8 (7.5-11.0) fl Segmented Neutrophils 80 H (36.0-66.0) % Band Neutrophils 1 (0.0-2.0) % Lymphocytes (Manual) 17 L (24-44) % Monocytes (Manual) 2 (0.0-12.0) % Platelet Estimate NORMAL (NORMAL) RBC Morphology ABNORMAL Anisocytosis 1+ D-Dimer 631 H* (215-500) ng/mL Puncture Site RIGHT BRACHIAL pCO2 42 (35-45) mmHg pO2 78 (75-100) mmHg Base Excess 6.2 H (-2.0-2.0) O2 Saturation 93.5 L (94-100) g/dF ABG pH 7.47 H (7.35-7.45) ABG HCO3 30.6 H* (22-28) ABG O2 Sat (Measured) 98.1 (95-100) % Nadeem Test NOT APPLICABLE A-a Gradient 583 a/A Ratio 0.12 Hemoglobin 13.3 Carboxyhemoglobin 3.6 (0.0-6.9) % THgb Methemoglobin 1.2 L (1.4-1.5) % Temperature 37.0 C POC O2 Flow Rate 100 % Sodium (137-145) mmol/L Potassium 4.3 (3.5-5.1) mmol/L Chloride (98-107) mmol/L Carbon Dioxide (22-30) mmol/L Anion Gap (5-15) MEQ/L BUN (7-17) mg/dL Creatinine (0.52-1.04) mg/dL Estimated GFR ML/MIN Glucose (74-106) mg/dL POC Glucometer (74 to 106) mg/dL Calcium (8.4-10.2) mg/dL Total Bilirubin (0.2-1.3) mg/dL AST (14-36) U/L ALT (0-35) U/L Alkaline Phosphatase (38-126) U/L Serum Total Protein (6.3-8.2) g/dL Albumin (3.5-5.0) g/dL 02/01/21 02/01/21 Range/Units 07:30 11:29 WBC (4.0-10.5) K/mm3 RBC (4.1-5.4) M/mm3 Hgb (12.0-16.0) gm/dl Hct (35-47) % MCV (78-100) fl MCH (26-32) pg MCHC (32-36) g/dl RDW (11.5-14.0) % Plt Count (150-450) K/mm3 MPV (7.5-11.0) fl Segmented Neutrophils (36.0-66.0) % Band Neutrophils (0.0-2.0) % Lymphocytes (Manual) (24-44) % Monocytes (Manual) (0.0-12.0) % Platelet Estimate (NORMAL) RBC Morphology Anisocytosis D-Dimer (215-500) ng/mL Puncture Site pCO2 (35-45) mmHg pO2 (75-100) mmHg Base Excess (-2.0-2.0) O2 Saturation (94-100) g/dF ABG pH (7.35-7.45) ABG HCO3 (22-28) ABG O2 Sat (Measured) (95-100) % Nadeem Test A-a Gradient a/A Ratio Hemoglobin Carboxyhemoglobin (0.0-6.9) % THgb Methemoglobin (1.4-1.5) % Temperature C POC O2 Flow Rate % Sodium (137-145) mmol/L Potassium (3.5-5.1) mmol/L Chloride (98-107) mmol/L Carbon Dioxide (22-30) mmol/L Anion Gap (5-15) MEQ/L BUN (7-17) mg/dL Creatinine (0.52-1.04) mg/dL Estimated GFR ML/MIN Glucose (74-106) mg/dL POC Glucometer 155 H 174 H (74 to 106) mg/dL Calcium (8.4-10.2) mg/dL Total Bilirubin (0.2-1.3) mg/dL AST (14-36) U/L ALT (0-35) U/L Alkaline Phosphatase (38-126) U/L Serum Total Protein (6.3-8.2) g/dL Albumin (3.5-5.0) g/dL Radiology Exams: Radiology Procedures Category Date Time Status CHEST WITHOUT CONTRAST [CT] Routine Exams 02/01/21 11:59 Ordered 0001 RAD/CHEST 1 VIEW (PORTABLE) Indication: Short of breath. Positive Covid 19. Comparison: None Portable chest demonstrates moderate diffuse bilateral consolidating/nonconsolidating patchy airspace disease without large effusion. Remaining heart and bony thorax unremarkable. Multi-Disciplinary Progress Notes: Multi-Disciplinary Progress Notes 02/01/21 10:43 Case Management Note by Miguelina Nick PATIENT CRITICALLY SICK AT THIS TIME- WILL DEFER CASE MANAGEMENT ASSESS UNTIL PATIENT MORE STABLE AND CLOSER TO DC Initialized on 02/01/21 10:43 - END OF NOTE Assessment/Plan (1) Pneumonia due to COVID-19 virus Current Visit: Yes Status: Acute Assessment & Plan: 0001 RAD/CHEST 1 VIEW (PORTABLE) Indication: Short of breath. Positive Covid 19. Comparison: None Portable chest demonstrates moderate diffuse bilateral consolidating/nonconsolidating patchy airspace disease without large effusion. Remaining heart and bony thorax unremarkable. Chief Complaint Diagnosis Covid Allergies Allergy/AdvReac Type Severity Reaction Status Date / Time prochlorperazine AdvReac Verified 01/30/21 08:41 [From Compazine] Vital Signs (Last 24 hours) Temp Pulse Resp BP BP BP Pulse Ox 02/01/21 12:53 88 20 89 L 02/01/21 11:49 97.4 F 87 26 H 159/91 88 L 02/01/21 11:00 81 22 86 L 02/01/21 10:00 77 28 H 85 L 02/01/21 09:00 80 30 H 90 L 02/01/21 08:37 92 L 02/01/21 08:00 98.6 F 85 26 H 151/77 91 L 02/01/21 06:53 82 28 H 89 L 02/01/21 06:00 26 H 02/01/21 05:59 90 29 H 92 L 02/01/21 04:52 81 22 94 L 02/01/21 03:43 82 25 H 151/88 91 L 02/01/21 03:10 86 20 134/71 02/01/21 03:00 98.2 F 82 20 151/88 88 L 02/01/21 02:00 81 17 93 L 02/01/21 00:55 98.0 F 92 H 20 134/71 90 L 02/01/21 00:00 80 31 H 124/74 93 L 01/31/21 23:00 82 30 H 93 L 01/31/21 22:00 84 29 H 92 L 01/31/21 21:27 92 L 01/31/21 21:00 87 29 H 90 L 01/31/21 20:00 98.4 F 89 26 H 161/91 93 L 01/31/21 19:56 92 L 01/31/21 19:00 85 32 H 92 L 01/31/21 18:08 85 33 H 01/31/21 17:58 26 H 01/31/21 17:45 93 H 36 H 85 L 01/31/21 17:00 96.7 F 93 H 30 H 151/86 86 L 01/31/21 16:00 35 H 01/31/21 15:48 84 30 H 88 L 01/31/21 15:17 92 L 01/31/21 14:41 84 30 H 90 L 01/31/21 14:00 19 01/31/21 13:42 89 23 93 L Home Medications Medication Instructions Recorded Confirmed Last Taken Type Metformin HCl 500 mg PO BID 01/30/21 01/30/21 01/28/21 History Current Medications Generic Name Dose Route Start Last Admin Trade Name Freq PRN Reason Stop Dose Admin Acetaminophen 650 mg 01/30/21 07:04 02/01/21 03:17 Acetaminophen 325 Mg Tablet PO 03/01/21 07:03 650 mg Q4H PRN PRN Administration PAIN AND/OR FEVER Baricitinib 4 mg 01/30/21 10:00 02/01/21 09:32 Baricitinib 2 Mg Tablet PO 02/12/21 10:01 4 mg DAILY SIVAN Administration Chlorphenir/Hydrocodone Polistirex 5 ml 01/31/21 10:24 02/01/21 08:14 Hydrocodone/Chlorphen P-Stirex 1 Ml Marlin.Er.12h PO 03/02/21 10:22 5 ml Q8HPRN PRN Administration COUGH Dexamethasone Sodium Phosphate 8 mg 01/31/21 10:00 02/01/21 09:32 Dexamethasone Sod Phosphate 10 Mg/Ml IV 03/02/21 09:59 8 mg DAILY SIVAN Administration Enoxaparin Sodium 80 mg 01/31/21 10:00 02/01/21 09:33 Enoxaparin Sodium 80 Mg/0.8 Ml Syringe SQ 03/02/21 09:59 80 mg DAILY SIVAN Administration Remdesivir 100 mg/ Sodium 100 mls @ 100 mls/hr 01/31/21 10:00 02/01/21 10:04 Chloride IV 02/03/21 10:59 100 mls/hr Q24H SIVAN Administration Sodium Chloride 1,000 mls @ 50 mls/hr 01/30/21 07:15 02/01/21 07:11 Sodium Chloride 0.9% 1000 Ml IV 03/01/21 07:14 50 mls/hr .Q20H SIVAN Administration Insulin Human Lispro 0 unit 01/30/21 07:04 01/31/21 16:29 Insulin Lispro 1 Unit SQ 03/01/21 07:03 2 unit UD PRN Administration HYPERGLYCEMIA Lorazepam 1 mg 01/30/21 09:40 02/01/21 03:10 Lorazepam 2 Mg/1 Ml 2 Mg Vial IV 03/01/21 09:39 1 mg Q4H PRN PRN Administration ANXIETY/AGITATION Metformin HCl 500 mg 01/30/21 09:00 02/01/21 08:14 Metformin Hcl 500 Mg Tablet PO 03/01/21 08:59 500 mg BIDWM SIVAN Administration Ondansetron HCl 4 mg 01/30/21 07:04 Ondansetron Hcl 4 Mg/2 Ml Vial IV 03/01/21 07:03 Q6H PRN PRN NAUSEA/VOMITING Pantoprazole Sodium 40 mg 01/30/21 10:00 02/01/21 09:33 Pantoprazole 40 Mg Vial IV 03/01/21 09:59 40 mg Q24H10 SIVAN Administration Discontinued Medications Generic Name Dose Route Start Last Admin Trade Name Freq PRN Reason Stop Dose Admin Chlorphenir/Hydrocodone Polistirex 5 ml 01/30/21 09:41 01/30/21 23:04 Hydrocodone/Chlorphen P-Stirex 1 Ml Marlin.Er.12h PO 03/01/21 09:40 5 ml [id number] PRN Administration COUGH Dexamethasone Sodium Phosphate 10 mg 01/30/21 06:51 01/30/21 06:53 Dexamethasone Sod Phosphate 10 Mg/Ml IV 01/30/21 06:52 10 mg STAT ONE Administration Dexamethasone Sodium Phosphate Confirm 01/30/21 06:51 Dexamethasone Sod Phosphate 10 Mg/Ml Administered 01/30/21 06:52 Dose 10 mg .ROUTE .STK-MED ONE Dexamethasone Sodium Phosphate 6 mg 01/31/21 10:00 Dexamethasone Sod Phosphate 10 Mg/Ml IV 03/02/21 09:59 DAILY SIVAN Enoxaparin Sodium 40 mg 01/30/21 10:00 Enoxaparin Sodium 40 Mg/0.4 Ml Syringe SQ 03/01/21 09:59 DAILY SIVAN Enoxaparin Sodium 80 mg 01/30/21 10:00 01/30/21 10:20 Enoxaparin Sodium 40 Mg/0.4 Ml Syringe SQ 03/01/21 09:59 80 mg DAILY SIVAN Administration Famotidine 20 mg 01/30/21 10:00 01/30/21 10:22 Famotidine 20 Mg/1 Vial IV 03/01/21 09:59 20 mg Q12HT SIVAN Administration Furosemide 20 mg 01/30/21 15:32 01/30/21 15:35 Furosemide 20 Mg/Vial IV 01/30/21 15:33 20 mg DAILY ONE Administration Remdesivir 200 mg/ Sodium 250 mls @ 125 mls/hr 01/30/21 07:09 01/30/21 09:16 Chloride IV 01/30/21 09:08 125 mls/hr ONCE ONE Administration Intake & Output (Last 24 hours) 01/30/21 01/31/21 02/01/21 02/02/21 11:59 11:59 11:59 11:59 Intake Total 1815 3255 Output Total 1275 1100 Balance 540 2155 Weight 159.9 kg 160.5 kg 162.9 kg Laboratory Results (Last 24 hours) 02/01/21 02/01/21 02/01/21 11:29 07:30 05:33 WBC RBC Hgb Hct MCV MCH MCHC RDW Plt Count MPV Segmented Neutrophils Band Neutrophils Lymphocytes (Manual) Monocytes (Manual) Platelet Estimate RBC Morphology Anisocytosis D-Dimer Puncture Site RIGHT BRACHIAL pCO2 42 pO2 78 Base Excess 6.2 H O2 Saturation 93.5 L ABG pH 7.47 H ABG HCO3 30.6 H* ABG O2 Sat (Measured) 98.1 Nadeem Test NOT APPLICABLE A-a Gradient 583 a/A Ratio 0.12 Hemoglobin 13.3 Carboxyhemoglobin 3.6 Methemoglobin 1.2 L Temperature 37.0 POC O2 Flow Rate 100 Sodium Potassium 4.3 Chloride Carbon Dioxide Anion Gap BUN Creatinine Estimated GFR Glucose POC Glucometer 174 H 155 H Calcium Total Bilirubin AST ALT Alkaline Phosphatase Serum Total Protein Albumin 02/01/21 02/01/21 02/01/21 05:30 05:30 05:30 WBC 14.1 H RBC 4.27 Hgb 12.3 Hct 40.8 MCV 95.6 MCH 28.8 MCHC 30.1 L RDW 15.7 H Plt Count 410 MPV 9.8 Segmented Neutrophils 80 H Band Neutrophils 1 Lymphocytes (Manual) 17 L Monocytes (Manual) 2 Platelet Estimate NORMAL RBC Morphology ABNORMAL Anisocytosis 1+ D-Dimer 631 H* Puncture Site pCO2 pO2 Base Excess O2 Saturation ABG pH ABG HCO3 ABG O2 Sat (Measured) Nadeem Test A-a Gradient a/A Ratio Hemoglobin Carboxyhemoglobin Methemoglobin Temperature POC O2 Flow Rate Sodium 136 L Potassium 4.6 Chloride 103 Carbon Dioxide 29 Anion Gap 8.8 BUN 18 H Creatinine 0.62 Estimated GFR > 60.0 Glucose 160 H POC Glucometer Calcium 8.9 Total Bilirubin 0.30 AST 71 H ALT 122 H Alkaline Phosphatase 122 Serum Total Protein 6.0 L Albumin 3.2 L 01/31/21 01/31/21 20:59 16:13 WBC RBC Hgb Hct MCV MCH MCHC RDW Plt Count MPV Segmented Neutrophils Band Neutrophils Lymphocytes (Manual) Monocytes (Manual) Platelet Estimate RBC Morphology Anisocytosis D-Dimer Puncture Site pCO2 pO2 Base Excess O2 Saturation ABG pH ABG HCO3 ABG O2 Sat (Measured) Nadeem Test A-a Gradient a/A Ratio Hemoglobin Carboxyhemoglobin Methemoglobin Temperature POC O2 Flow Rate Sodium Potassium Chloride Carbon Dioxide Anion Gap BUN Creatinine Estimated GFR Glucose POC Glucometer 173 H 207 H Calcium Total Bilirubin AST ALT Alkaline Phosphatase Serum Total Protein Albumin Orders (Last 24 hours) Category Date Time Status CHEST WITHOUT CONTRAST [CT] Routine Exams 02/01/21 11:59 Ordered ARTERIAL BLOOD GASES Routine Lab 02/01/21 05:33 Completed CBC W DIFF DAILY Lab 02/01/21 05:30 Completed CMP AM.LAB Lab 02/01/21 05:30 Completed D-DIMER QUANTITATIVE AM.LAB Lab 02/01/21 05:30 Completed Manual Differential NC Routine Lab 02/01/21 05:30 Completed POCT GLUCOSE Stat Lab 01/31/21 16:13 Completed POCT GLUCOSE Stat Lab 01/31/21 20:59 Completed POCT GLUCOSE Stat Lab 02/01/21 07:30 Completed POCT GLUCOSE Stat Lab 02/01/21 11:29 Completed Patient Care Notes (Last 24 hours) 02/01/21 10:43 Case Management Note by Miguelina Nick PATIENT CRITICALLY SICK AT THIS TIME- WILL DEFER CASE MANAGEMENT ASSESS UNTIL PATIENT MORE STABLE AND CLOSER TO DC Initialized on 02/01/21 10:43 - END OF NOTE 01/31/21 21:14 Nursing Note by Anshul Cheng Pt up to BSC and back to bed. O2 sat down to 71% on 40 L High flow 80%. Pt mildly SOB, no distress noted. O2 sat gradually up to 89% with pursed lip breathing. After pt relaxed in bed a few minutes, O2 sat dropped back to 84%. RT notified. Initialized on 01/31/21 21:14 - END OF NOTE 01/31/21 18:56 Nursing Note by Nani Sanchez Pt resting without further c/o anxiety at this time. Initialized on 01/31/21 18:56 - END OF NOTE Code(s): U07.1 - COVID-19; J12.82 - PNEUMONIA DUE TO CORONAVIRUS DISEASE 2019
--- NOTE | 2021-02-01 14:31 | XRAY ---
Exam: CT of the chest without IV contrast including high-resolution images from 02/01/2021. CTDI: 16.73 mGy Comparison: AP portable chest film from 01/30/[address] of the chest with IV contrast from 01/19/2021. Indication: Covid-19. Technique: Non-IV contrast axial images were obtained through the chest. Reconstructed coronal and sagittal images were created and reviewed. Addition, high resolution supine and prone images of the chest were obtained. Findings: There has been a marked unfavorable change as compared to the CT of the chest with IV contrast from 01/19/2021. There are extensive scattered bilateral groundglass air space infiltrates throughout both lungs with relative sparing of the left lung apex. Given the patient's history, this is consistent with extensive bilateral Covid-19 pneumonia. The groundglass opacities obscure the previously noted small cluster of indeterminate noncalcified micronodules at the posterior medial aspect of the right lower lobe. I see no pneumothorax or pleural effusion. Extensive bilateral bronchograms are seen. I see no evidence of bronchiectasis or honeycombing. There is a small calcification within the left lobe of the thyroid gland. The transverse heart size appears within normal limits. No pericardial effusion is seen. There is a suggestion of a minimal hiatal hernia. Small nonspecific lymph node densities are seen within the distal right paratracheal projection. No definite abnormal mediastinal lymphadenopathy is seen. The noel appear grossly unremarkable. There appears to be some decreased attenuation within the liver as compared to the spleen. This suggests some hepatic steatosis. On axial image #57, there is a small oval-shaped low-attenuation density within the left adrenal gland measuring 1.6 cm x 1.1 cm in cross section. This measures -4.25 Hounsfield units and probably represents a small left adrenal adenoma. I don't believe this is changed. The remainder the visualized upper abdomen appears unremarkable. The skeleton reveals no acute fracture or other aggressive bone lesion. Small anterior vertebral endplate spurs are seen within the lower thoracic and upper lumbar spine. There appears to be a mild pectus excavatum of the xiphoid process on the sagittal images. Impression: 1. New extensive bilateral groundglass infiltrates are seen, right slightly more pronounced than left. This represents a marked worsening as compared to the prior CT of the chest from 01/19/2021. Numerous air bronchograms are seen bilaterally. This is consistent with extensive Covid-19 bilateral pneumonia. 2. Prior small cluster of indeterminate noncalcified micronodules at the posterior medial right lower lobe is obscured by today's extensive groundglass airspace disease. 3. I believe there is a small hiatal hernia. 4. There also appears to be a small left adrenal adenoma which is unchanged in retrospect. 5. Hepatic steatosis.
[2021-02-02] MEDS: Ativan 2 MG/1 ML VIAL IV PRN ×4 (01:02→22:00)
[2021-02-02 07:18] LABS: Hematocrit 41.5 % (35-47); Hemoglobin 12.9 gm/dl (12.0-16.0); Mean Cell Volume 94.7 fl (78-100); Mean Corpuscular Hemoglobin 29.5 pg (26-32); Mean Corpuscular Hgb Concent. 31.1 g/dl (32-36); Mean Platelet Volume 9.5 fl (7.5-11.0); Platelet Count 499 K/mm3 (150-450); Red Blood Count 4.38 M/mm3 (4.1-5.4); Red Cell Distribution Width 15.3 % (11.5-14.0); White Blood Count 12.7 K/mm3 (4.0-10.5)
[2021-02-02 07:53] LABS: ALBUMIN 3.4 g/dL (3.5-5.0); ALKALINE PHOSPHATASE 112 U/L (38-126); ANION GAP 8.7 MEQ/L (5-15); BLOOD UREA NITROGEN 18 mg/dL (7-17); CHLORIDE 101 mmol/L (98-107); Calcium 8.8 mg/dL (8.4-10.2); Carbon Dioxide 33 mmol/L (22-30); Creatinine 1 0.66 mg/dL (0.52-1.04); EST GLOMERULAR FILTRATION RATE > 60.0 ML/MIN; Glucose 153 mg/dL (74-106); SGOT/AST 65 U/L (14-36); SGPT/ALT 121 U/L (0-35); SODIUM 138 mmol/L (137-145); Total Protein 6.5 g/dL (6.3-8.2)
[2021-02-02 08:20] LABS: A-aADO2 568; ABG HEMOGLOBIN 13.3; ABG POTASSIUM 3.8 (3.5-5.1); ART BLD GAS PRESSURE SUPPORT 18; ARTERIAL BLD GAS O2 SATURATION 98.2 % (95-100); ARTERIAL BLD GAS TIDAL VOLUME 500 cc; ARTERIAL BLOOD GAS BASE EXCESS 8.8 (-2.0-2.0); ARTERIAL BLOOD GAS FIO2 100 %; ARTERIAL BLOOD GAS PCO2 51 mmHg (35-45); ARTERIAL BLOOD GAS PO2 81 mmHg (75-100); ARTERIAL BLOOD GAS VENT MODE avaps; ARTERIAL BLOOD GAS pH 7.44 (7.35-7.45); CARBOXYHEMOGLOBIN 1.5 % THgb (0.0-6.9); HCO3- 34.6 (22-28); HGB O2 SAT 95.7 g/dF (94-100)
[2021-02-02 08:21] LABS: ABG SITE LEFT RADIAL; ALLEN TEST OK? yes; ARTERIAL BLOOD GAS VENT RATE 14 /MIN
[2021-02-02] MEDS: Glucophage 500 MG PO SCH ×2 (08:59→18:02)
[2021-02-02] MEDS: REMDESIVIR 100 MG in Sodium Chloride 0.9% 100 ML BAG 100 ML IV SCH (10:26)
[2021-02-02] MEDS: ENOXAPARIN SODIUM SQ SCH (10:26)
[2021-02-02] MEDS: PROTONIX 40 MG IV IV SCH (10:26)
[2021-02-02] MEDS: DEXAMETHASONE IV SCH ×2 (10:26)
[2021-02-02] MEDS: OLUMIANT PO SCH (10:26)
[2021-02-02] MEDS: Sodium Chloride 0.9% 1000 ML 1,000 ML IV SCH ×2 (10:27)
--- NOTE | 2021-02-02 10:47 | XRAY ---
Indication: Covid 19 pneumonia. Comparison: January 30, 2021. Portable chest demonstrates slight worsening moderate diffuse bilateral consolidating/nonconsolidating airspace disease again without large effusion. Heart not enlarged. Bony thorax intact.
[2021-02-02] MEDS: DECADRON 10MG INJ. IV SCH (11:16)
--- NOTE | 2021-02-02 13:07 | PROG NOTE ---
DATE: 02/02/2021 HISTORY: The patient's O2 has deteriorated using 100% BiPAP with O2 in the low 80's, high 70"s. She desaturates easy. Ordered consultation by Dr. Skinny Cary, [employer]. She was continued on her diabetes medicine, Remdesivir, Decadron has been increased up to 12 today. She is on 80 of Lovenox due to her large size. Temperature is down. Pulse 28. Respirations 83. Blood pressure 150/90. Her white count went up to probably secondary to the steroids. D-dimer yesterday was 600. We got a D-dimer, CBC and a portable chest x-ray pending. She had CT yesterday which basically showed increasing COVID-type pneumonia with some opacities in her liver probably due to fatty liver. Plan at this time will continue doing everything we do now which is the maximum we can do. Consultation with Dr. Cary. She looks stable and she is comfortable. She has been turning on her side and back. Chances are she may have to be intubated and we are ready for that.
[2021-02-02 16:17] LABS: A-aADO2 570; ABG HEMOGLOBIN 13.5; ABG POTASSIUM 4.3 (3.5-5.1); ABG SITE LEFT RADIAL; ALLEN TEST OK? YES; ARTERIAL BLD GAS O2 SATURATION 98.6 % (95-100); ARTERIAL BLD GAS TIDAL VOLUME 500 cc; ARTERIAL BLOOD GAS BASE EXCESS 9.7 (-2.0-2.0); ARTERIAL BLOOD GAS FIO2 100 %; ARTERIAL BLOOD GAS PCO2 45 mmHg (35-45); ARTERIAL BLOOD GAS PO2 87 mmHg (75-100); ARTERIAL BLOOD GAS VENT MODE BiPAP; ARTERIAL BLOOD GAS pH 7.49 (7.35-7.45); CARBOXYHEMOGLOBIN 0.9 % THgb (0.0-6.9); HCO3- 34.3 (22-28); HGB O2 SAT 96.8 g/dF (94-100); Methhemoglobin 0.8 % (1.4-1.5)
[2021-02-02] MEDS: HYDROCODONE-CHLORPHEN ER SUSP PO PRN (23:53)
[2021-02-03] MEDS: Ativan 2 MG/1 ML VIAL IV PRN (02:16)
[2021-02-03 04:47] LABS: A-aADO2 563; ABG HEMOGLOBIN 13.6; ARTERIAL BLD GAS TIDAL VOLUME 500 cc; ARTERIAL BLOOD GAS BASE EXCESS 8.8 (-2.0-2.0); ARTERIAL BLOOD GAS FIO2 100 %; ARTERIAL BLOOD GAS PCO2 48 mmHg (35-45); ARTERIAL BLOOD GAS PO2 90 mmHg (75-100); ARTERIAL BLOOD GAS VENT MODE BiPAP; ARTERIAL BLOOD GAS pH 7.46 (7.35-7.45); CARBOXYHEMOGLOBIN 1.1 % THgb (0.0-6.9); HCO3- 34.1 (22-28); Methhemoglobin 0.8 % (1.4-1.5)
[2021-02-03 04:48] LABS: ABG SITE LEFT RADIAL; ALLEN TEST OK? YES
[2021-02-03 05:21] LABS: Hematocrit 42.5 % (35-47); Hemoglobin 13.1 gm/dl (12.0-16.0); Mean Cell Volume 93.4 fl (78-100); Mean Corpuscular Hemoglobin 28.8 pg (26-32); Mean Corpuscular Hgb Concent. 30.8 g/dl (32-36); Mean Platelet Volume 9.6 fl (7.5-11.0); Platelet Count 557 K/mm3 (150-450); Red Blood Count 4.55 M/mm3 (4.1-5.4); White Blood Count 12.1 K/mm3 (4.0-10.5)
[2021-02-03 05:30] LABS: ALBUMIN 3.4 g/dL (3.5-5.0); ALKALINE PHOSPHATASE 130 U/L (38-126); ANION GAP 11.7 MEQ/L (5-15); BLOOD UREA NITROGEN 19 mg/dL (7-17); CHLORIDE 98 mmol/L (98-107); Calcium 9.1 mg/dL (8.4-10.2); Carbon Dioxide 33 mmol/L (22-30); Creatinine 1 0.71 mg/dL (0.52-1.04); EST GLOMERULAR FILTRATION RATE > 60.0 ML/MIN; Glucose 156 mg/dL (74-106); Potassium 4.4 mmol/L (3.5-5.1); SGOT/AST 58 U/L (14-36); SGPT/ALT 124 U/L (0-35); SODIUM 138 mmol/L (137-145); Total Protein 6.2 g/dL (6.3-8.2)
[2021-02-03] MEDS: Glucophage 500 MG PO SCH ×2 (08:08→17:17)
[2021-02-03] MEDS: REMDESIVIR 100 MG in Sodium Chloride 0.9% 100 ML BAG 100 ML IV SCH (09:37)
[2021-02-03] MEDS: DEXAMETHASONE IV SCH ×2 (09:37)
[2021-02-03] MEDS: ENOXAPARIN SODIUM SQ SCH (09:37)
[2021-02-03] MEDS: PROTONIX 40 MG IV IV SCH (09:38)
[2021-02-03] MEDS: OLUMIANT PO SCH (09:38)
[2021-02-03] MEDS: Sodium Chloride 0.9% 1000 ML 1,000 ML IV SCH ×2 (09:39)
[2021-02-03] MEDS: HYDROCODONE-CHLORPHEN ER SUSP PO PRN ×2 (11:51→22:28)
[2021-02-04 06:57] LABS: Hematocrit 42.7 % (35-47); Hemoglobin 13.1 gm/dl (12.0-16.0); Mean Cell Volume 94.1 fl (78-100); Mean Corpuscular Hemoglobin 28.9 pg (26-32); Mean Corpuscular Hgb Concent. 30.7 g/dl (32-36); Mean Platelet Volume 9.5 fl (7.5-11.0); Platelet Count 603 K/mm3 (150-450); Red Blood Count 4.54 M/mm3 (4.1-5.4); Red Cell Distribution Width 14.9 % (11.5-14.0); White Blood Count 13.9 K/mm3 (4.0-10.5)
[2021-02-04 07:54] LABS: ALBUMIN 3.5 g/dL (3.5-5.0); ALKALINE PHOSPHATASE 119 U/L (38-126); ANION GAP 8.7 MEQ/L (5-15); BLOOD UREA NITROGEN 21 mg/dL (7-17); CHLORIDE 97 mmol/L (98-107); Calcium 8.9 mg/dL (8.4-10.2); Carbon Dioxide 34 mmol/L (22-30); Creatinine 1 0.76 mg/dL (0.52-1.04); EST GLOMERULAR FILTRATION RATE > 60.0 ML/MIN; Glucose 130 mg/dL (74-106); SGOT/AST 50 U/L (14-36); SGPT/ALT 125 U/L (0-35); SODIUM 136 mmol/L (137-145); Total Protein 6.5 g/dL (6.3-8.2)
--- NOTE | 2021-02-04 08:09 | CONS ---
CONSULT DATE: 02/03/2021 HISTORY: Miss Vi Ramos is a 40-year-old who has been admitted with positive COVID-19 test on 01/30/2021 at [facility]. The patient has been treated with standard therapy including IV Remdesivir and oral Olumiant agents along with steroids and supportive care. She remained significantly hypoxic. She has been requiring 100% oxygen either on high flow or with BiPAP. At the time of my evaluation, the patient reported feeling somewhat better. She was able to carry out a conversation although appeared a bit slow. She has a nonproductive cough. She does report obstructive airways disease in the past and uses Albuterol inhaler on an as needed basis. PAST MEDICAL HISTORY: Diabetes mellitus. She was on Metformin at home. According to H&P she was diagnosed with recent thyroid cancer which is yet to be treated. PAST SURGICAL HISTORY: She had a ventral hernia repair as a young lady. PERSONAL AND SOCIAL HISTORY: She is a former smoker who quit smoking ten years ago. VACCINATION HISTORY: The patient is unvaccinated. MEDICATIONS: Her current medications are reviewed. ALLERGIES: ALLERGIES NOTED. PHYSICAL EXAMINATION: This is a middle-aged woman who appears mildly short of breath, able to carry out conversation. Vital signs noted. HEENT: Normocephalic. Oral exam is limited. NECK: Supple. CVS: First and second heart sounds are normal, regular, rhythmic. RESPIRATORY: Shows diminished breath sounds. ABDOMEN: Soft. EXTREMITIES: No edema is noted. LABORATORY DATA AND TESTS: Labs showed D-dimer of 753. Sodium 138, potassium 4.4, chloride 98, bicarb 43, glucose 156, BUN 19, creatinine 0.7. White count 12.1, hemoglobin 13.1, hematocrit 42, PLT 557,000. The pH 7.46m, pCO2 of 48, pO2 of 90 and this was on BiPAP mode with tidal volume of 500, O2 flow rate of 100%, PEEP of 10. Chest x-ray on admission and from today were reviewed. ASSESSMENT: This is a 40-year-old woman admitted with: 1) Acute severe hypoxic respiratory failure. 2) COVID-19 infection with viral pneumonitis. 3) Obesity. 4) Hyperglycemia and other comorbidities as listed above. RECOMMENDATIONS: 1) I agree with current treatment. 2) The patient is on also full dose anticoagulation. 3) Continue to await clinical improvement. 4) Continue postural therapy. 5) Continue other supportive care. PROGNOSIS: Remains guarded. The patient's chest x-ray showed preservation of left upper lobe as the only area without significant involvement. Thank you, Dr. Ayers, for allowing me to participate in the care of this patient.
[2021-02-04] MEDS: HYDROCODONE-CHLORPHEN ER SUSP PO PRN ×2 (08:41→22:12)
[2021-02-04] MEDS: DEXAMETHASONE IV SCH ×2 (09:03)
[2021-02-04] MEDS: PROTONIX 40 MG IV IV SCH (09:03)
[2021-02-04] MEDS: OLUMIANT PO SCH (09:03)
[2021-02-04] MEDS: ENOXAPARIN SODIUM SQ SCH (09:03)
[2021-02-04] MEDS: Glucophage 500 MG PO SCH ×2 (09:04→16:39)
--- NOTE | 2021-02-04 09:16 | XRAY ---
Indication: Follow-up Covid 19 pneumonia. Comparison: February 02, 2021. Portable chest unchanged again demonstrating moderate diffuse bilateral consolidating/nonconsolidating airspace disease again without large effusion. Heart not enlarged. No new cardiopulmonary abnormalities.
[2021-02-04] MEDS: REMDESIVIR 100 MG in Sodium Chloride 0.9% 100 ML BAG 100 ML IV SCH (09:55)
[2021-02-04] MEDS ORDERED: Lasix 20 MG/2 ML IV SCH (12:00)
[2021-02-05] MEDS: Glucophage 500 MG PO SCH ×2 (09:05→17:17)
[2021-02-05] MEDS: ENOXAPARIN SODIUM SQ SCH (09:05)
[2021-02-05] MEDS: DEXAMETHASONE IV SCH ×2 (09:05)
[2021-02-05] MEDS: OLUMIANT PO SCH (09:05)
[2021-02-05] MEDS: PROTONIX 40 MG IV IV SCH (09:05)
[2021-02-05] MEDS: REMDESIVIR 100 MG in Sodium Chloride 0.9% 100 ML BAG 100 ML IV SCH (09:09)
--- NOTE | 2021-02-05 11:03 | XRAY ---
Indication: Cough. Covid 19 pneumonia. Comparison: One day earlier. Portable chest unchanged again demonstrating moderate diffuse bilateral consolidating/nonconsolidating airspace disease. Heart not enlarged. No new cardiopulmonary abnormalities.
[2021-02-05] MEDS: HYDROCODONE-CHLORPHEN ER SUSP PO PRN (12:04)
[2021-02-05] MEDS: HUMALOG SQ PRN (22:46)
[2021-02-06] MEDS: OLUMIANT PO SCH (08:06)
[2021-02-06] MEDS: PROTONIX 40 MG IV IV SCH (08:06)
[2021-02-06] MEDS: Glucophage 500 MG PO SCH ×2 (08:06→16:49)
[2021-02-06] MEDS: DEXAMETHASONE IV SCH ×4 (08:07→08:08)
[2021-02-06] MEDS: REMDESIVIR 100 MG in Sodium Chloride 0.9% 100 ML BAG 100 ML IV SCH (08:08)
[2021-02-06] MEDS: ENOXAPARIN SODIUM SQ SCH (08:08)
[2021-02-06] MEDS: HYDROCODONE-CHLORPHEN ER SUSP PO PRN (08:16)
[2021-02-06] MEDS: HUMALOG SQ PRN ×2 (16:49→21:35)
[2021-02-07 05:49] LABS: Hematocrit 44.1 % (35-47); Hemoglobin 13.4 gm/dl (12.0-16.0); Mean Cell Volume 93.6 fl (78-100); Mean Corpuscular Hemoglobin 28.5 pg (26-32); Mean Corpuscular Hgb Concent. 30.4 g/dl (32-36); Mean Platelet Volume 10.8 fl (7.5-11.0); Platelet Count 493 K/mm3 (150-450); Red Blood Count 4.71 M/mm3 (4.1-5.4); Red Cell Distribution Width 14.9 % (11.5-14.0); White Blood Count 17.6 K/mm3 (4.0-10.5)
[2021-02-07 06:04] LABS: ALBUMIN 3.3 g/dL (3.5-5.0); ALKALINE PHOSPHATASE 100 U/L (38-126); ANION GAP 7.3 MEQ/L (5-15); BLOOD UREA NITROGEN 22 mg/dL (7-17); CHLORIDE 96 mmol/L (98-107); Calcium 9.2 mg/dL (8.4-10.2); Carbon Dioxide 35 mmol/L (22-30); Creatinine 1 0.75 mg/dL (0.52-1.04); EST GLOMERULAR FILTRATION RATE > 60.0 ML/MIN; Glucose 140 mg/dL (74-106); Potassium 4.5 mmol/L (3.5-5.1); SGOT/AST 22 U/L (14-36); SGPT/ALT 67 U/L (0-35); SODIUM 134 mmol/L (137-145)
[2021-02-07] MEDS: Glucophage 500 MG PO SCH ×2 (07:35→16:48)
[2021-02-07] MEDS: HYDROCODONE-CHLORPHEN ER SUSP PO PRN ×2 (07:39→20:16)
[2021-02-07] MEDS: DEXAMETHASONE IV SCH ×2 (09:02)
[2021-02-07] MEDS: ENOXAPARIN SODIUM SQ SCH (09:05)
[2021-02-07] MEDS: REMDESIVIR 100 MG in Sodium Chloride 0.9% 100 ML BAG 100 ML IV SCH (09:06)
[2021-02-07] MEDS: PROTONIX 40 MG IV IV SCH (09:06)
[2021-02-07] MEDS: OLUMIANT PO SCH (09:06)
[2021-02-07] MEDS ORDERED: Zithromax 250 MG TABLET PO ONE (14:00)
[2021-02-07] MEDS: ROCEPHIN 1 Gm-D5w 50 ml Bag** 1 G/50 ML IVPB IV SCH (14:04)
[2021-02-07] MEDS: HUMALOG SQ PRN (16:47)
[2021-02-08] MEDS: Glucophage 500 MG PO SCH ×2 (08:03→16:32)
--- NOTE | 2021-02-08 08:48 | XRAY ---
Indication: Covid 19 pneumonia. Comparison: February 05, 2021. Portable chest unchanged again demonstrating moderate diffuse bilateral consolidating/nonconsolidating air space disease. Heart not enlarged. No new cardiopulmonary abnormalities.
[2021-02-08] MEDS: PROTONIX 40 MG IV IV SCH (09:42)
[2021-02-08] MEDS: DEXAMETHASONE IV SCH ×2 (09:42)
[2021-02-08] MEDS: ENOXAPARIN SODIUM SQ SCH (09:45)
[2021-02-08] MEDS: OLUMIANT PO SCH (09:45)
[2021-02-08] MEDS: Zithromax 250 MG TABLET PO SCH (09:45)
[2021-02-08] MEDS: ROCEPHIN 1 Gm-D5w 50 ml Bag** 1 G/50 ML IVPB IV SCH (09:47)
[2021-02-08] MEDS: REMDESIVIR 100 MG in Sodium Chloride 0.9% 100 ML BAG 100 ML IV SCH (09:48)
[2021-02-08 10:11] LABS: Hematocrit 44.5 % (35-47); Hemoglobin 13.9 gm/dl (12.0-16.0); Mean Cell Volume 93.5 fl (78-100); Mean Corpuscular Hemoglobin 29.2 pg (26-32); Mean Corpuscular Hgb Concent. 31.2 g/dl (32-36); Mean Platelet Volume 10.1 fl (7.5-11.0); Platelet Count 618 K/mm3 (150-450); Red Blood Count 4.76 M/mm3 (4.1-5.4); Red Cell Distribution Width 14.9 % (11.5-14.0); White Blood Count 14.8 K/mm3 (4.0-10.5)
[2021-02-08 10:31] LABS: ALBUMIN 3.5 g/dL (3.5-5.0); ALKALINE PHOSPHATASE 88 U/L (38-126); ANION GAP 15.2 MEQ/L (5-15); BLOOD UREA NITROGEN 22 mg/dL (7-17); CHLORIDE 96 mmol/L (98-107); Carbon Dioxide 26 mmol/L (22-30); Creatinine 1 0.78 mg/dL (0.52-1.04); EST GLOMERULAR FILTRATION RATE > 60.0 ML/MIN; Glucose 224 mg/dL (74-106); Potassium 3.8 mmol/L (3.5-5.1); SGOT/AST 28 U/L (14-36); SODIUM 134 mmol/L (137-145); Total Protein 6.1 g/dL (6.3-8.2)
[2021-02-08 10:37] LABS: SGPT/ALT 60 U/L (0-35)
--- NOTE | 2021-02-08 10:55 | XRAY ---
Indication: Follow-up Covid 19 pneumonia. Comparison: Taken earlier in the day. Portable chest is better inflated with grossly stable moderate diffuse bilateral airspace disease. Heart not enlarged. No new cardiopulmonary abnormalities.
[2021-02-08 11:32] LABS: Eosinophil 1 % (0.00-3.0); Lymphocytes 13 % (24-44); Monocyte 9 % (0.0-12.0); Neutrophils 77 % (36.0-66.0); Total Cells Counted 100
[2021-02-08 11:33] LABS: Platelet Estimate NORMAL (NORMAL)
[2021-02-08 16:02] LABS: Appearance CLEAR (CLEAR); Bacteria RARE /HPF (NEGATIVE); Bilirubin NEGATIVE (NEGATIVE); Blood NEGATIVE Ery/ul (0-5); Epithelial Cells RARE /HPF (FEW); Glucose NEGATIVE (NEGATIVE); Ketones NEGATIVE (NEGATIVE); Leukocyte Esterase SMALL (NEGATIVE); Mucus SLIGHT /HPF (NEGATIVE); Nitrite NEGATIVE (NEGATIVE); Protein,Urine Dip NEGATIVE (Negative); RBC 0-2 /HPF (0-2); Specific Gravity 1.023 (1.005-1.025); Urobilinogen 4 mg/dL (0-1)
[2021-02-08] MEDS: HUMALOG SQ PRN (16:33)
[2021-02-09 06:42] LABS: Hematocrit 46.4 % (35-47); Hemoglobin 14.4 gm/dl (12.0-16.0); Mean Cell Volume 93.2 fl (78-100); Mean Corpuscular Hemoglobin 28.9 pg (26-32); Mean Platelet Volume 10.2 fl (7.5-11.0); Platelet Count 580 K/mm3 (150-450); Red Blood Count 4.98 M/mm3 (4.1-5.4); Red Cell Distribution Width 15.1 % (11.5-14.0); White Blood Count 15.9 K/mm3 (4.0-10.5)
[2021-02-09] MEDS: Glucophage 500 MG PO SCH ×2 (07:42→17:09)
[2021-02-09] MEDS ORDERED: Decadron 4 MG INJ IV SCH (10:00)
[2021-02-09] MEDS: ENOXAPARIN SODIUM SQ SCH (10:21)
[2021-02-09] MEDS: OLUMIANT PO SCH (10:21)
[2021-02-09] MEDS: ROCEPHIN 1 Gm-D5w 50 ml Bag** 1 G/50 ML IVPB IV SCH (10:21)
[2021-02-09] MEDS: Zithromax 250 MG TABLET PO SCH (10:22)
[2021-02-09] MEDS: PROTONIX 40 MG IV IV SCH (10:22)
[2021-02-09] MEDS: HUMALOG SQ PRN (17:09)
[2021-02-10 05:45] VITALS: BP 113/69
[2021-02-10] MEDS: Glucophage 500 MG PO SCH (08:13)
[2021-02-10 09:40] VITALS: PULSE 89; O2SAT 93
== END 2021-02-10 09:20 | disposition home or self-care (01) | DRG 177 ==
LOC: ED 05:11 → MED SURG 08:02 → OBSVTOIN 08:02 → MED SURG 02-09 10:15
PROVIDERS: ADMIT Family Medicine; ATTEND Family Medicine
DX: U07.1 COVID-19 (principal); J12.82 Pneumonia due to coronavirus disease 2019; J96.01 Acute respiratory failure with hypoxia; E11.9 Type 2 diabetes mellitus without complications; C73 Malignant neoplasm of thyroid gland; E66.9 Obesity, unspecified; Z79.899 Other long term (current) drug therapy; Z20.828 Contact with and (suspected) exposure to other viral communicable diseases
CPT/HCPCS: 0241U; 36000; 36415; 36600; 71045; 71250; 80053; 81001; 82375; 82803; 82947; 83605; 84484; 85025; 85027; 85379; 85610; 85730; 93005; 94002; 94003; 94762; 96374; 99285; 99291; J0696; J1100; J1650; J1817; J1940; J2060; A9270-GY